=== PATIENT | male | born 1960 | race African-American/Black ===

== ENCOUNTER 2017-06-23 11:26 | Emergency (ER) | payer MEDICAID, OTHER ==
[~2017-06-23] VITALS: Ht 172.7 cm; Wt 68.0 kg
[~2017-06-23 11:26] MED LIST: ALBU8I INH; BIAX500T PO; EMTR200 PO; ETHA400T PO; ISON300 PO; PYRA500 PO; PYRI50TA PO; RALT400 PO; RIFABUTIN PO; SULF-154 PO; TENO300 PO
[2017-06-23 11:30] VITALS: BP 140/81; PULSE 97; RESP 15; TEMP 98.3; O2SAT 99
--- NOTE | 2017-06-23 11:36 | PD ---
Physical Exam Date Seen by Provider: Jun 23, 2017 Time Seen by Provider: 11:32 Data Data Last Documented VS Vital Signs Date Time Temp Pulse Resp B/P Pulse Ox O2 Delivery O2 Flow Rate FiO2 06/23/17 11:30 98.3 97 15 140/81 99 MDM Supervised Visit with FLY: No Narrative Course 57 YO M with "a couple of year history" of bilateral leg pain and swelling. No recent trauma. Patient states he was seen at [facility], provided pain medications. He is requesting pain medications today. History of HIV. No medications for one year. Vitals reviewed. Patient seen in triage. Awaiting bed placement. Bonny Correa Jun 23, 2017 11:36
[2017-06-23 11:55] VITALS: BP 130/68; PULSE 95; RESP 20; TEMP 98.1; O2SAT 99
--- NOTE | 2017-06-23 11:58 | PD ---
HPI . Chronic leg pain Chief Complaint: Pain: Acute or Chronic Time Seen by Provider: 11:57 Travel History International Travel<30 days: No Contact w/Intl Traveler<30days: No Traveled to known affect area: No History of Present Illness HPI 57-year-old male with history of chronic leg pain and HIV here with complaints of worsening leg pain. Patient tells me that he was recently seen at another hospital and prescribed Percocet, which helps his leg pain. However he recently ran out and has not been able to see his primary care provider and tells me is now having difficulty walking without the medications. I know this patient from the [facility]. He had similar issues in the past. At this present time, he has no other complaints other then chronic leg pain. PFSH Past Medical History Blood Disorders: Yes (HIV) Cancer: No Cardiovascular Problems: No Endocrine: No Genitourinary: No Hepatitis: Yes (c) Immune Disorder: Yes (HIV) Implanted Vascular Access Dvce: No Medical other: Yes (chronic pain) Musculoskeletal: No Neurologic: No Psychiatric: No Reproductive: No Respiratory: Yes (TB) Tetanus Vaccination: Unknown Past Surgical History Surgical History: No Previous Surgery Other Surgery: No Social History Alcohol Use: Yes (occ) Tobacco Use: Yes Substance Use: No Allergies-Medications (Allergen,Severity, Reaction): Coded Allergies: No Known Allergies (Verified , 06/23/17) Reported Meds & Prescriptions Reported Meds & Active Scripts Active Percocet (Oxycodone-Acetaminophen) 5-325 mg Tab 1 Tab PO Q6H PRN Reported Oxycodone (Oxycodone HCl) 5 Mg Cap 5 Mg PO BID PRN Review of Systems General / Constitutional: No: Fever Eyes: No: Visual changes HENT: No: Headaches Cardiovascular: No: Chest Pain or Discomfort Respiratory: No: Shortness of Breath Gastrointestinal: No: Abdominal Pain Genitourinary: No: Dysuria Musculoskeletal: Positive: Pain (b/l leg pain) Skin: No Rash Neurologic: No: Weakness Psychiatric: No: Depression Endocrine: No: Polydipsia Hematologic/Lymphatic: No: Easy Bruising Physical Exam Narrative GENERAL: AAO x 3, no acute distress, Well-nourished, well-developed patient. SKIN: Warm and dry. No visible rashes or bruising. multiple excoriations without evidence of infection HEAD: Normocephalic and atraumatic. EYES: No scleral icterus. No injection or drainage. ENT: No nasal drainage noted. Mucous membranes pink. Airway patent. NECK: Supple, trachea midline. No JVD. CARDIOVASCULAR: Regular rate and rhythm without murmurs, gallops, or rubs. RESPIRATORY: Breath sounds equal bilaterally. No accessory muscle use. No rhonchi or rales. GASTROINTESTINAL: Abdomen soft, non-tender, nondistended. EXTREMITIES: No cyanosis or edema. pedal pulses intact. no edema or temperature variation in legs BACK: No obvious deformity. 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 Data Data Last Documented VS Vital Signs Date Time Temp Pulse Resp B/P Pulse Ox O2 Delivery O2 Flow Rate FiO2 06/23/17 11:55 98.1 95 20 130/68 99 Room Air Orders Methylprednisolone So Succ Inj (Solumedr (06/23/17 12:00) Albuterol Neb (Albuterol Neb) (06/23/17 12:00) Oxycodone-Acetamin 5-325 Mg (Percocet (06/23/17 12:00) MDM Medical Decision Making Medical Screen Exam Complete: Yes Emergency Medical Condition: Yes Medical Record Reviewed: Yes Differential Diagnosis Acute on chronic leg pain, less likely fracture, less likely DVT Narrative Course 57-year-old male who I know from the [facility] clinic here with complaints of chronic leg pain. Patient had similar issues in the past twice on him. He is here requesting a refill on his Percocet. He is also been seen by Dr. Rice. We do not recommend any further testing. We provided patient with percocet here in ED. Rx for home. Advised f/u with PCP. Patient verbalized understanding of instructions, questions were answered, and thanked me for their care. I advised them if their condition worsens, please return to the nearest emergency room for further care. Diagnosis Primary Impression: Chronic leg pain Qualified Code: M79.604 - Chronic pain of both lower extremities Referrals: [facility] Patient Instructions: General Instructions Additional Instructions: Contact [facility], and they can help you make changes to your primary care provider. Please visit the health department to get started on HIV medicines again. Med/Other Pt SpecificInfo: Prescription(s) given Scripts Oxycodone-Acetaminophen (Percocet)5-325 mg Tab1 Tab PO Q6H PRN (PAIN) #12 TAB Ref 0 Prov:Osorio Rice MD 06/23/17 Disposition: 01 DISCHARGE HOME Condition: Stable Savi Torers Jun 23, 2017 11:58
[2017-06-23] MEDS ORDERED: OXYC1CAP PO (11:59)
[2017-06-23] MEDS ORDERED: PERC5TAB12 PO (11:59)
[2017-06-23] MEDS ORDERED: oxyCODONE/ACETAMINOPHEN 5 MG/325 MG TAB PO ONE (12:00)
[2017-06-23] MEDS ORDERED: RESP: ALBUTEROL 2.5 MG/3 ML NEB (SCH) INH ONE (12:00)
[2017-06-23] MEDS ORDERED: methylPREDNISolone SOD SUCC 125 MG/2 ML VIAL IVP ONE (12:00)
--- NOTE | 2017-06-23 12:00 | PD ---
Data Data Last Documented VS Vital Signs Date Time Temp Pulse Resp B/P Pulse Ox O2 Delivery O2 Flow Rate FiO2 06/23/17 11:55 98.1 95 20 130/68 99 Room Air Orders Methylprednisolone So Succ Inj (Solumedr (06/23/17 12:00) Albuterol Neb (Albuterol Neb) (06/23/17 12:00) Oxycodone-Acetamin 5-325 Mg (Percocet (06/23/17 12:00) MDM Supervised Visit with FLY: Yes Narrative Course The history, exam, and medical decision-making in the associated mid-level provider note were completed with my assistance. I reviewed and agree with the findings presented. I attest that I had a [id number] encounter with the patient on the same day, and personally performed and documented my assessment and findings in the medical record. *My assessment and Findings: 57-year-old man with untreated HIV, advanced, with chronic leg pain. Here with the same. No significant swelling. Recommend outpatient follow-up. Osorio Rice MD Jun 23, 2017 12:00
[2017-06-23 13:07] VITALS: RESP 20
== END 2017-06-23 13:28 | disposition home or self-care (01) ==
LOC: NEPE 11:26
DX: M79.604 Pain in right leg (principal); M79.605 Pain in left leg; G89.29 Other chronic pain; B19.20 Unspecified viral hepatitis C without hepatic coma; Z86.11 Personal history of tuberculosis; Z21 Asymptomatic human immunodeficiency virus [HIV] infection status; Z72.0 Tobacco use
CPT/HCPCS: 99283

== ENCOUNTER 2018-05-07 12:26 | Inpatient (IN) | payer MEDICAID ==
[~2018-05-07] VITALS: Ht 172.7 cm; Wt 52.1 kg
[2018-05-07] VITALS (7 sets, daily range): BP systolic 94–168; BP diastolic 54–82; PULSE 47–81; RESP 18–22; TEMP 97.2–101.3; O2SAT 93–100
[~2018-05-07 12:26] MED LIST changes: -ALBU8I INH; -BIAX500T PO; -EMTR200 PO; -ETHA400T PO; -ISON300 PO; +OXYC1CAP PO; +PERC5TAB12 PO; -PYRA500 PO; -PYRI50TA PO; -RALT400 PO; -RIFABUTIN PO; -SULF-154 PO; -TENO300 PO
[2018-05-07] MEDS ORDERED: SODIUM CHLOR 0.9% 1000 ML INJ 1,000 ML IV ONE ×2 (13:09)
[2018-05-07] MEDS ORDERED: ACETAMINOPHEN 650 MG SUPP RECTAL ONE (13:15)
[2018-05-07 13:42] LABS: HEMATOCRIT 28.9 % (39.0-51.0); HEMOGLOBIN 10.1 GM/DL (13.0-17.0); MEAN CELL VOLUME 94.5 FL (80.0-100.0); MEAN CORPUSCULAR HGB CONC 34.9 % (32.0-36.0); MEAN PLATELET VOLUME 9.1 FL (7.0-11.0); PLATELET COUNT 131 TH/MM3 (150-450); RED BLOOD COUNT 3.06 MIL/MM3 (4.50-5.90); RED CELL DISTRIBUTION WIDTH 14.4 % (11.6-17.2); WHITE BLOOD COUNT 7.1 TH/MM3 (4.0-11.0)
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
[2018-05-07 13:55] LABS: INTERNATIONAL NORMALIZED RATIO 1.2 RATIO; PROTHROMBIN TIME - PATIENT 12.4 SEC (9.8-11.6)
[2018-05-07 13:59] LABS: ALBUMIN 2.1 GM/DL (3.4-5.0); ALT (GPT) 45 U/L (12-78); AST (GOT) 78 U/L (15-37); BICARBONATE 21.4 MEQ/L (21.0-32.0); BLOOD UREA NITROGEN 10 MG/DL (7-18); CALCIUM 7.8 MG/DL (8.5-10.1); CHLORIDE 115 MEQ/L (98-107); CREATININE 1.06 MG/DL (0.60-1.30); GLOMERULAR FILTRATION RATE 87 ML/MIN (>89); GLUCOSE,RANDOM 112 MG/DL (74-106); SODIUM (NA) 146 MEQ/L (136-145)
[2018-05-07 14:03] LABS: ALKALINE PHOSPHATASE 69 U/L (45-117); TOTAL PROTEIN 7.5 GM/DL (6.4-8.2)
--- NOTE | 2018-05-07 14:17 | RADRPT ---
EXAM DATE: 05/07/2018 2:06 PM EDT AGE/SEX: 57 years / Male INDICATIONS: Altered mental status CLINICAL DATA: This is the patient's initial encounter. Patient reports that signs and symptoms have been present for 1 day and indicates a pain score of 0/10. MEDICAL/SURGICAL HISTORY: HIV. Hepatitis C. None. RADIATION DOSE: 56.35 CTDI (mGy) COMPARISON: [facility], CT BRAIN W/O CONTRAST, 09/17/2014. . TECHNIQUE: CT of the head without contrast. Using automated exposure control and adjustment of the mA and/or kV according to patient size, radiation dose was kept as low as reasonably achievable to ob tain optimal diagnostic quality images. DICOM format image data is available electronically for revi ew and comparison. FINDINGS: Cerebrum: There is mild generalized atrophy and ventricles are normal given the degree of atrophy. M ild periventricular white matter change is present. No midline shift, mass lesion, hemorrhage or acu te infarction. No extraaxial fluid collections are seen. Posterior Fossa: The cerebellum and brainstem demonstrate no acute abnormality. The 4th ventricle is midline. The cerebellopontine angle is within normal limits. Extracranial: The visualized sinuses are clear. Skull: The calvaria is intact. No skull fracture. CONCLUSION: 1. No acute intracranial abnormality is identified. 2. There is mild generalized atrophy and mild periventricular white matter change. Electronically signed by: Bentley Sosa MD 05/07/2018 2:16 PM EDT
[2018-05-07 14:19] LABS: BANDS 9 % (0-6); CORRECTED NUCLEATED RBC 1 /100 WBC (0-0); LYMPHOCYTES 2 % (9-44); MONOCYTES 5 % (0-8); NEUTROPHIL # MANUAL DIFF 6.6 TH/MM3 (1.8-7.7); NUCLEATED RED BLOOD CELL 1 (0-0); POLYS (SEG NEUTROPHILS) 84 % (16-70)
[2018-05-07 14:21] LABS: TOXIC GRANULATION 1+ (NORMAL)
[2018-05-07 14:22] LABS: TOXIC VACUOLATION PRESENT (NONE SEEN)
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
[2018-05-07 16:00] LABS: BACTERIA, URINE RARE /hpf; BILIRUBIN, URINE NEG (NEG); BLOOD, URINE MOD (NEG); GLUCOSE,URINE NEG (NEG); KETONE, URINE NEG (NEG); NITRITE,URINE NEG (NEG); SQUAMOUS EPITHELIAL CELL URINE 2 /hpf (0-5); URINE COLOR Amber (YELLW/STRAW); URINE LEUKOCYTE ESTERASE SMALL (NEG)
[2018-05-07] MEDS ORDERED: PIPERACIL-TAZO 4.5 GM PREMIX 100 ML IV STA (16:04)
[2018-05-07] MEDS ORDERED: SODIUM CHLOR 0.9% 1000 ML INJ 1,000 ML IV SCH (16:38)
--- NOTE | 2018-05-07 16:38 | PD ---
Physical Exam Narrative GENERAL: 57 y/o male in no apparent distress SKIN: Focused skin assessment warm/dry. HEAD: Normocephalic. EYES: Pupils equal and round. No injection or drainage. ENT: No nasal bleeding or discharge. Mucous membranes pink and moist. NECK: Trachea midline. CARDIOVASCULAR: Regular rate and rhythm. RESPIRATORY: No accessory muscle use. no increased effort GASTROINTESTINAL: Abdomen nondistended. MUSCULOSKELETAL: No obvious deformities. No clubbing. No cyanosis. NEUROLOGICAL: Awake. moves extremities Data Data Last Documented VS Vital Signs Date Time Temp Pulse Resp B/P (MAP) Pulse Ox O2 Delivery O2 Flow Rate FiO2 05/07/18 16:13 64 18 137/60 (85) 100 Room Air 05/07/18 12:35 99.6 Orders Orders Sepsis Workup Initiated (05/07/18 ) Complete Blood Count With Diff (05/07/18 13:09) Comprehensive Metabolic Panel (05/07/18 13:09) Prothrombin Time / Inr (Pt) (05/07/18 13:09) Act Partial Throm Time (Ptt) (05/07/18 13:09) Lactic Acid Sepsis Protocol (05/07/18 13:09) Magnesium (Mg) (05/07/18 13:09) Ckmb (Isoenzyme) Profile (05/07/18 13:09) Troponin I (05/07/18 13:09) Urinalysis - C+S If Indicated (05/07/18 13:09) Blood Culture (05/07/18 13:09) Chest, Single Ap (05/07/18 13:09) Blood Glucose (05/07/18 13:09) Ecg Monitoring (05/07/18 13:09) Iv Access Insert/Monitor (05/07/18 13:09) Cath For Specimen (05/07/18 13:09) Oximetry (05/07/18 13:09) Oxygen Administration (05/07/18 13:09) Acetaminophen Supp (Tylenol Supp) (05/07/18 13:15) Sodium Chlor 0.9% 1000 Ml Inj (Ns 1000 M (05/07/18 13:09) Sodium Chlor 0.9% 1000 Ml Inj (Ns 1000 M (05/07/18 13:09) Ct Brain W/O Iv Contrast(Rout) (05/07/18 ) CKMB (05/07/18 13:30) CKMB% (05/07/18 13:30) Urine Culture (05/07/18 15:19) Piperacil-Tazo 4.5 Gm Premix (Zosyn 4.5 (05/07/18 16:04) Labs Laboratory Tests Test 05/07/18 13:30 05/07/18 15:19 White Blood Count 7.1 TH/MM3 Red Blood Count 3.06 MIL/MM3 Hemoglobin 10.1 GM/DL Hematocrit 28.9 % Mean Corpuscular Volume 94.5 FL Mean Corpuscular Hemoglobin 33.0 PG Mean Corpuscular Hemoglobin Concent 34.9 % Red Cell Distribution Width 14.4 % Platelet Count 131 TH/MM3 Mean Platelet Volume 9.1 FL CBC Comment AUTO DIFF Differential Total Cells Counted 100 Neutrophils % (Manual) 84 % Band Neutrophils % 9 % Lymphocytes % 2 % Monocytes % 5 % Neutrophils # (Manual) 6.6 TH/MM3 Nucleated Red Blood Cells 1 /100 WBC Differential Comment FINAL DIFF MANUAL Toxic Granulation 1+ Toxic Vacuolation PRESENT Platelet Estimate LOW Platelet Morphology Comment NORMAL Prothrombin Time 12.4 SEC Prothromb Time International Ratio 1.2 RATIO Activated Partial Thromboplast Time 27.7 SEC Blood Urea Nitrogen 10 MG/DL Creatinine 1.06 MG/DL Random Glucose 112 MG/DL Total Protein 7.5 GM/DL Albumin 2.1 GM/DL Calcium Level 7.8 MG/DL Magnesium Level 2.0 MG/DL Alkaline Phosphatase 69 U/L Aspartate Amino Transf (AST/SGOT) 78 U/L Alanine Aminotransferase (ALT/SGPT) 45 U/L Total Bilirubin 1.0 MG/DL Sodium Level 146 MEQ/L Potassium Level 3.5 MEQ/L Chloride Level 115 MEQ/L Carbon Dioxide Level 21.4 MEQ/L Anion Gap 10 MEQ/L Estimat Glomerular Filtration Rate 87 ML/MIN Lactic Acid Level 2.0 mmol/L Total Creatine Kinase 455 U/L Creatine Kinase MB 2.0 NG/ML Creatine Kinase MB % 0.4 % Troponin I 0.10 NG/ML Urine Color [place]ila Urine Turbidity HAZY Urine pH 6.0 Urine Specific [place] 1.019 Urine Protein NEG mg/dL Urine Glucose (UA) NEG mg/dL Urine Ketones NEG mg/dL Urine Occult Blood MOD Urine Nitrite NEG Urine Bilirubin NEG Urine Urobilinogen 4.0 OR GREATER mg/dL Urine Leukocyte Esterase SMALL Urine RBC 5 /hpf Urine WBC 4 /hpf Urine Squamous Epithelial Cells 2 /hpf Urine Bacteria RARE /hpf Microscopic Urinalysis Comment CATH-CULTURE IND MDM Supervised Visit with FLY: Yes Interpretation(s) CBC & BMP Diagram 05/07/18 13:30 Total Protein 7.5, Albumin 2.1 L, Calcium Level 7.8 L, Magnesium Level 2.0, Alkaline Phosphatase 69, Aspartate Amino Transf (AST/SGOT) 78 H, Alanine Aminotransferase (ALT/SGPT) 45, Total Bilirubin 1.0 Last 24 hours Impressions Chest X-Ray 05/07/18 1309 Signed Impressions: CONCLUSION: 1. No acute abnormality or significant interval change. Head CT 05/07/18 0000 Signed Impressions: CONCLUSION: 1. No acute intracranial abnormality is identified. 2. There is mild generalized atrophy and mild periventricular white matter bubba nge. Narrative Course I, Dr. conway, have reviewed the advance practice practitioner's documentation and am in agreement, met with the patient face to face, made the diagnosis, and the medical decision making was done by me. *My assessment and Findings: 57-year-old male brought in with concern for living environment and altered mental status with history of HIV. Workup reveals UTI and elevated troponin. He will be admitted to the hospital for further care and antibiotics given. Diagnosis Primary Impression: Encephalopathy Additional Impressions: UTI (urinary tract infection) Qualified Codes: N39.0 - Urinary tract infection, site not specified Anemia Qualified Codes: D64.9 - Anemia, unspecified HIV (human immunodeficiency virus infection) Elevated troponin Admitting Information Admitting Physician Requests: Admit Kristen Conway MD May 07, 2018 16:38
[2018-05-07] MEDS ORDERED: LACTULOSE SYRUP 20 GM/30 ML CUP PO PRN (16:45)
[2018-05-07] MEDS ORDERED: NALOXONE HCL 0.4 MG/ML AMP IV PUSH PRN (16:45)
[2018-05-07] MEDS ORDERED: SODIUM CHLORIDE 0.9% FLUSH 10 ML FLUSH IV FLUSH PRN (16:45)
[2018-05-07] MEDS ORDERED: MAGNESIUM HYDROXIDE SUSP 30 ML CUP PO PRN (16:45)
[2018-05-07] MEDS ORDERED: SENNOSIDES 8.6 MG TAB PO PRN (16:45)
[2018-05-07] MEDS ORDERED: BISACODYL 10 MG SUPP RECTAL PRN (16:45)
[2018-05-07] MEDS ORDERED: ASPIRIN 325 MG TAB PO ONE (18:15)
--- NOTE | 2018-05-07 18:36 | HHI.HP ---
HPI Service [facility] Hospitalists Primary Care Physician Unknown Admission Diagnosis altered mental status, uti, elevated troponin Diagnoses: (1) UTI (urinary tract infection) (2) Elevated troponin Chief Complaint: Patient found by DCF worker noted to have altered mental status Travel History International Travel<30 Days: No (UNABLE TO ASSESS) Contact w/Intl Traveler <30 Da: No (UNABLE TO ASSESS) Traveled to Known Affected Are: No (UNABLE TO ASSESS) History of Present Illness This a 57-year-old male patient with past medical history which includes HIV diagnosed with AIDS October 2014, hepatitis C and tuberculosis. Patient presented to the emergency department for evaluation from home for altered mental status. Patient is able to give me his name able to tell me he is at [facility] but is unable to tell me month day or year, patient also appears to be a poor historian and has limited ability recalling details. Information gathered from patient physical exam and prior computerized charting. Per ER report DCF profiler operator called EMS, patient was found living in deplorable conditions. There were cockroaches, animals and filthy conditions the patient was living in. Patient likely has not had his medications in some time. At this time patient denies shortness of breath chest pain nausea vomiting diarrhea constipation fevers chills cough congestion or shortness of breath. Patient also denies dysuria but does endorse increased urinary frequency. Patient noted to be thin/cachectic but denies recent weight loss and reports good appetite. Review of Systems ROS Limitations: Poor Historian Genitourinary: COMPLAINS OF: Urinary frequency Except as stated in HPI: all other systems reviewed are Neg Past Family Social History Past Medical History HIV diagnosed with AIDS October 2014, hepatitis C and tuberculosis Past Surgical History Denies prior surgical intervention Reported Medications No Active Prescriptions or Reported Medications Allergies: Coded Allergies: No Known Allergies (Verified , 06/23/17) Active Ordered Medications Current Medications Medications (Trade) Dose Ordered Sig/Deb Route Start Time Stop Time Status Last Admin Sodium Chloride 1,000 ml @ 100 mls/hr Q10H IV 05/07/18 16:38 05/07/18 16:56 (NS Flush) 2 ml UNSCH PRN IV FLUSH 05/07/18 16:45 (NS Flush) 2 ml BID IV FLUSH 05/07/18 21:00 (Narcan Inj) 0.4 mg UNSCH PRN IV PUSH 05/07/18 16:45 (Milk Of Magnesia Liq) 30 ml Q12H PRN PO 05/07/18 16:45 (Senokot) 17.2 mg Q12H PRN PO 05/07/18 16:45 (Dulcolax Supp) 10 mg DAILY PRN RECTAL 05/07/18 16:45 (Lactulose Liq) 30 ml DAILY PRN PO 05/07/18 16:45 Ceftriaxone Sodium 1000 mg/ Sodium Chloride 100 ml @ 200 mls/hr Q24H IV 05/07/18 18:00 Family History Reviewed and noncontributory. Patient denies family medical history specifically diabetes hypertension cardiac disease Social History Patient lives at home with family members Denies EtOH use or illicit drug use Patient reports he smokes cigarettes, "when he can sneak outside," away from his family members. Patient reports this is not even on a daily basis Physical Exam Vital Signs Vital Signs Date Time Temp Pulse Resp B/P (MAP) Pulse Ox O2 Delivery O2 Flow Rate FiO2 05/07/18 16:13 64 18 137/60 (85) 100 Room Air 05/07/18 14:14 81 18 168/70 (102) 95 Room Air 05/07/18 13:38 22 100 Room Air 05/07/18 13:38 100 Room Air 05/07/18 13:10 65 16 100 Room Air 05/07/18 12:35 99.6 75 18 94/54 (67) 100 Physical Exam GENERAL: This is a cachectic 57-year-old male patient appears older than stated age but in no acute distress SKIN: Multiple areas of healing wound/hypopigmentation throughout body HEAD: Atraumatic. Normocephalic. No temporal or scalp tenderness. EYES: Extraocular motions intact. No scleral icterus. No injection or drainage. CARDIOVASCULAR: Regular rate and rhythm RESPIRATORY: Clear to auscultation. Breath sounds equal bilaterally. GASTROINTESTINAL: Abdomen soft, non-tender, nondistended. MUSCULOSKELETAL: Extremities without clubbing, cyanosis, or edema. No joint tenderness, effusion, or edema noted. No calf tenderness. Negative Homans sign bilaterally. NEUROLOGICAL: Awake and alert. Able to provide name and tell me that he is at [facility]. Patient unable to provide month day or year. No focal deficits appreciated. motor and sensory grossly within normal limits. 4-5 out of 5 muscle strength in all muscle groups. Laboratory Laboratory Tests Test 05/07/18 13:30 05/07/18 15:19 White Blood Count 7.1 Red Blood Count 3.06 Hemoglobin 10.1 Hematocrit 28.9 Mean Corpuscular Volume 94.5 Mean Corpuscular Hemoglobin 33.0 Mean Corpuscular Hemoglobin Concent 34.9 Red Cell Distribution Width 14.4 Platelet Count 131 Mean Platelet Volume 9.1 CBC Comment AUTO DIFF Differential Total Cells Counted 100 Neutrophils % (Manual) 84 Band Neutrophils % 9 Lymphocytes % 2 Monocytes % 5 Neutrophils # (Manual) 6.6 Nucleated Red Blood Cells 1 Differential Comment FINAL DIFF MANUAL Toxic Granulation 1+ Toxic Vacuolation PRESENT Platelet Estimate LOW Platelet Morphology Comment NORMAL Prothrombin Time 12.4 Prothromb Time International Ratio 1.2 Activated Partial Thromboplast Time 27.7 Blood Urea Nitrogen 10 Creatinine 1.06 Random Glucose 112 Total Protein 7.5 Albumin 2.1 Calcium Level 7.8 Magnesium Level 2.0 Alkaline Phosphatase 69 Aspartate Amino Transf (AST/SGOT) 78 Alanine Aminotransferase (ALT/SGPT) 45 Total Bilirubin 1.0 Sodium Level 146 Potassium Level 3.5 Chloride Level 115 Carbon Dioxide Level 21.4 Anion Gap 10 Estimat Glomerular Filtration Rate 87 Lactic Acid Level 2.0 Total Creatine Kinase 455 Creatine Kinase MB 2.0 Creatine Kinase MB % 0.4 Troponin I 0.10 Urine Color Gila Urine Turbidity HAZY Urine pH 6.0 Urine Specific Donora 1.019 Urine Protein NEG Urine Glucose (UA) NEG Urine Ketones NEG Urine Occult Blood MOD Urine Nitrite NEG Urine Bilirubin NEG Urine Urobilinogen 4.0 OR GREATER Urine Leukocyte Esterase SMALL Urine RBC 5 Urine WBC 4 Urine Squamous Epithelial Cells 2 Urine Bacteria RARE Microscopic Urinalysis Comment CATH-CULTURE IND Date/Time Source Procedure Growth Status 05/07/18 13:30 Blood Peripheral Aerobic Blood Culture Pending Received 05/07/18 13:30 Blood Peripheral Anaerobic Blood Culture Pending Received 05/07/18 15:19 Urine Catheterized Urine Urine Culture Pending Received Result Diagram: 05/07/18 1330 05/07/18 1330 Imaging Last Impressions Chest X-Ray 05/07/18 1309 Signed Impressions: CONCLUSION: 1. No acute abnormality or significant interval change. Head CT 05/07/18 0000 Signed Impressions: CONCLUSION: 1. No acute intracranial abnormality is identified. 2. There is mild generalized atrophy and mild periventricular white matter bubba nge. Caprini VTE Risk Assessment Caprini VTE Risk Assessment: No/Low Risk (score <= 1) Caprini Risk Assessment Model Point Value = 1 Point Value = 2 Point Value = 3 Point Value = 5 Age 41-60 Minor surgery BMI > 25 kg/m2 Swollen legs Varicose veins or History of unexplained or recurrent spontaneous Oral contraceptives or hormone replacement Sepsis (< 1 month) Serious lung disease, including pneumonia (< 1 month) Abnormal pulmonary function Acute myocardial infarction Congestive heart failure (< 1 month) History of inflammatory bowel disease Medical patient at bed rest Age 61-74 Arthroscopic surgery Major open surgery (> 45 min) Laparoscopic surgery (> 45 min) Malignancy Confined to bed (> 72 hours) Immobilizing plaster cast Central venous access Age >= 75 History of VTE Family history of VTE Factor V Leiden Prothrombin [id number] Lupus anticoagulant Anticardiolipin antibodies Elevated serum homocysteine Heparin-induced thrombocytopenia Other congenital or acquired thrombophilia Stroke (< 1 month) Elective arthroplasty Hip, pelvis, or leg fracture Acute spinal cord injury (< 1 month) Prophylaxis Regimen Total Risk Factor Score Risk Level Prophylaxis Regimen 0-1 Low Early ambulation 2 Moderate Order ONE of the following: *Sequential Compression Device (SCD) *Heparin 5000 units SQ BID 3-4 Higher Order ONE of the following medications: *Heparin 5000 units SQ TID *Enoxaparin/Lovenox 40 mg SQ daily (WT < 150 kg, CrCl > 30 mL/min) *Enoxaparin/Lovenox 30 mg SQ daily (WT < 150 kg, CrCl > 10-29 mL/min) *Enoxaparin/Lovenox 30 mg SQ BID (WT < 150 kg, CrCl > 30 mL/min) AND/OR *Sequential Compression Device (SCD) 5 or more Highest Order ONE of the following medications: *Heparin 5000 units SQ TID (Preferred with Epidurals) *Enoxaparin/Lovenox 40 mg SQ daily (WT < 150 kg, CrCl > 30 mL/min) *Enoxaparin/Lovenox 30 mg SQ daily (WT < 150 kg, CrCl > 10-29 mL/min) *Enoxaparin/Lovenox 30 mg SQ BID (WT < 150 kg, CrCl > 30 mL/min) AND *Sequential Compression Device (SCD) Assessment and Plan Assessment and Plan UTI Patient endorses increased urinary frequency White blood cell count on admission 7.1 neutrophils 84 Urinalysis reviewed and reveals small amount of leukocyte esterase with rare bacteria culture pending Patient given IV Zosyn 1 in emergency department Continue IV Rocephin 1 g daily Elevated troponin Troponin on admission 0.10 patient denies chest pain Initial EKG obtained and reveals sinus bradycardia rate 53, prolonged QT interval 538 discussed results and EKG with supervising physician Dr. Marques Consult cardiology We will trend serial troponin and serial EKG aspirin daily lipid profile in AM continuous telemetry patient was hypotensive on admission will hold off on BB Weakness Consult physical therapy Mild hypernatremia sodium 146 Continue IV fluids half-normal saline at 100 mL's per hour 1 L Recheck BMP in a.m. AIDS HIV diagnosed with AIDS October 2014 appears to be end stage will consult palliative care to assist in establishing goals of care Consult case management patient will likely need SNF at time of DC DVT prophylaxis with SCDs Discussed case with patient, nurse and Dr. Marques (supervising physician) Physician Certification 2 Midnight Certification Type: Admission for Inpatient Services Order for Inpatient Services The services are ordered in accordance with Medicare regulations or non- Medicare payer requirements, as applicable. In the case of services not specified as inpatient-only, they are appropriately provided as inpatient services in accordance with the 2-midnight benchmark. Estimated LOS (days): 2 days is the estimated time the patient will need to remain in the hospital, assuming treatment plan goals are met and no additional complications. Post-Hospital Plan: SNF Problem Qualifiers (1) UTI (urinary tract infection): Qualified Codes: N39.0 - Urinary tract infection, site not specified Joan Longo May 07, 2018 18:36
[2018-05-07] MEDS: cefTRIAXone INJ 1,000 MG in SODIUM CHLORIDE 0.9% INJ 100 ML IV SCH (19:26)
[2018-05-07] MEDS: SODIUM CHLOR 0.45% 1000 ML INJ 1,000 ML IV SCH (19:27)
[2018-05-07] MEDS: SODIUM CHLORIDE 0.9% FLUSH 10 ML FLUSH IV FLUSH SCH (21:00)
[2018-05-07 21:57] LABS: TROPONIN I 0.1 NG/ML (0.02-0.05)
[2018-05-08] VITALS (10 sets, daily range): BP systolic 97–118; BP diastolic 63–84; PULSE 48–72; RESP 16–20; TEMP 97–98.4; O2SAT 95–100
[2018-05-08 05:52] LABS: HEMATOCRIT 28.1 % (39.0-51.0); HEMOGLOBIN 9.7 GM/DL (13.0-17.0); MEAN CELL VOLUME 96.3 FL (80.0-100.0); MEAN CORPUSCULAR HEMOGLOBIN 33.4 PG (27.0-34.0); MEAN CORPUSCULAR HGB CONC 34.6 % (32.0-36.0); MEAN PLATELET VOLUME 9.6 FL (7.0-11.0); PLATELET COUNT 103 TH/MM3 (150-450); RED BLOOD COUNT 2.91 MIL/MM3 (4.50-5.90); RED CELL DISTRIBUTION WIDTH 14.4 % (11.6-17.2); WHITE BLOOD COUNT 5.1 TH/MM3 (4.0-11.0)
[2018-05-08 06:29] LABS: ALBUMIN 1.7 GM/DL (3.4-5.0); BICARBONATE 19.1 MEQ/L (21.0-32.0); CALCIUM 7.2 MG/DL (8.5-10.1); CALCIUM-PROTEIN CORRECTED 7.6 MG/DL (8.5-10.1); CHOLESTEROL/ HDL RATIO 5.03 RATIO; CREATININE 0.87 MG/DL (0.60-1.30); HDL CHOLESTEROL 13.5 MG/DL (40.0-60.0); TOTAL BILIRUBIN ADULT 0.8 MG/DL (0.2-1.0); TOTAL PROTEIN 6.4 GM/DL (6.4-8.2); TROPONIN I 0.08 NG/ML (0.02-0.05)
[2018-05-08 07:08] LABS: BANDS 13 % (0-6); LYMPHOCYTES 7 % (9-44); MONOCYTES 2 % (0-8); MYELOCYTES 1 % (0-0); NEUTROPHIL # MANUAL DIFF 4.6 TH/MM3 (1.8-7.7); POLYS (SEG NEUTROPHILS) 77 % (16-70)
[2018-05-08 07:10] LABS: KERATOCYTES 1+ (NORMAL); TOXIC VACUOLATION PRESENT (NONE SEEN)
--- NOTE | 2018-05-08 07:26 | EKG ---
Date Performed: 05/07/2018 Time Performed: 22:22:54 PTAGE: 57 years EKG: SINUS BRADYCARDIA WITH SHORT AK INTERVAL POSSIBLE LATERAL MYOCARDIAL INFARCTION , OF INDETE RMINATE AGE ABNORMAL ECG PREVIOUS TRACING : 05/07/2018 17.13 DOCTOR: Osorio Enrique Interpretating Date/Time 05/08/2018 07:23:54
--- NOTE | 2018-05-08 07:33 | EKG ---
Date Performed: 05/07/2018 Time Performed: 17:13:38 PTAGE: 57 years EKG: SINUS BRADYCARDIA WITH OCCASIONAL SUPRAVENTRICULAR PREMATURE COMPLEXES PROLONGED QT INTERVA L ABNORMAL ECG PREVIOUS TRACING : 10/17/2014 14.23 DOCTOR: Osorio Enrique Interpretating Date/Time 05/08/2018 07:30:22
[2018-05-08] MEDS: ASPIRIN 325 MG TAB PO SCH (09:10)
[2018-05-08] MEDS: POTASSIUM CHLORIDE 10 MEQ CONTROLLED RELEASE TAB PO SCH ×2 (09:10→11:01)
[2018-05-08] MEDS: SODIUM CHLOR 0.45% 1000 ML INJ 1,000 ML IV SCH (09:11)
[2018-05-08] MEDS: SODIUM CHLORIDE 0.9% FLUSH 10 ML FLUSH IV FLUSH SCH ×2 (09:18→21:16)
[2018-05-08] MEDS: POTASSIUM CHLOR 20 MEQ PREMIX 100 ML IV SCH ×5 (11:01→23:12)
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
--- NOTE | 2018-05-08 13:45 | MB ---
cc: Miki Becerra MD DATE: 05/08/2018 HISTORY OF PRESENT ILLNESS: Mr. Vaz is a 57-year-old black male with a history of AIDS, hepatitis C and tuberculosis. He was brought from home due to altered mental status. He denies any chest pain, shortness of breath, dizziness, lightheadedness, palpitations or peripheral edema. PAST MEDICAL HISTORY: Positive for HIV/AIDS, hepatitis C, tuberculosis. MEDICATIONS: Include: Aspirin, potassium chloride, ceftriaxone. ALLERGIES: NONE. SOCIAL HISTORY: The patient is a smoker. He does not drink alcohol. He lives with family. FAMILY HISTORY: Negative for heart disease. REVIEW OF SYSTEMS: Otherwise negative. PHYSICAL EXAMINATION: VITAL SIGNS: Blood pressure 103/66, pulse 53 and regular. HEENT: Negative 2+ carotid upstrokes, no bruits. LUNGS: Clear. HEART: Regular with no murmur or gallop or rub. ABDOMEN: Soft. No bruits. EXTREMITIES: Without edema. 2+ distal pulses. NEUROLOGIC: Grossly nonfocal. The patient is confused. SKIN: With multiple areas of depigmentation. LABORATORY DATA: EKG was reviewed and showed sinus bradycardia, PACs. No acute changes. LABORATORY DATA: Hemoglobin 9.7, potassium 2.8, creatinine 0.9, AST 89, ALT 41. CK 455, 944 and 966, CK-MB index normal. Troponin, 0.10, 0.10 and 0.08. DIAGNOSIS: 1. Altered mental status. 2. Urinary tract infection. 3. AIDS. 4. Mildly abnormal troponin. 5. History of hepatitis C. 6. History of tuberculosis. DISPOSITION: Mr. Vaz will be monitored on telemetry. His troponin is slightly elevated, but not trending. His EKG shows no acute changes and there is no evidence of acute coronary syndrome. I recommend to continue monitoring on telemetry. We will obtain echocardiogram to evaluate his left ventricular function. Miki Becerra MD OQ/TL , 01:20 PM , 01:[address] [facility]
--- NOTE | 2018-05-08 14:10 | HHI.PR ---
Subjective Remarks This a 57-year-old male patient with past medical history which includes HIV diagnosed with AIDS October 2014, hepatitis C and tuberculosis. Patient presented to the emergency department for evaluation from home for altered mental status. Patient is able to give me his name able to tell me he is at [facility] but is unable to tell me month day or year, patient also appears to be a poor historian and has limited ability recalling details. Information gathered from patient physical exam and prior computerized charting. Per ER report DCF low voltage technician called EMS, patient was found living in deplorable conditions. There were cockroaches, animals and filthy conditions the patient was living in. Patient likely has not had his medications in some time. At this time patient denies shortness of breath chest pain nausea vomiting diarrhea constipation fevers chills cough congestion or shortness of breath. Patient also denies dysuria but does endorse increased urinary frequency. Patient noted to be thin/cachectic but denies recent weight loss and reports good appetite. 05-08 patient is very poor historian NOT SURE WHERE HE LIVES NEEDS PT AND OT NOT ON ANY MEDICATIONS AT HOME ONEAL RN AND PT AND CM Objective Vitals Vital Signs Date Time Temp Pulse Resp B/P (MAP) Pulse Ox O2 Delivery O2 Flow Rate FiO2 05/08/18 08:00 48 05/08/18 08:00 Room Air 05/08/18 04:30 55 05/08/18 04:00 97.4 54 18 103/66 (78) 96 05/08/18 00:30 54 05/08/18 00:00 97.8 52 16 97/68 (78) 95 05/07/18 22:43 Room Air 05/07/18 20:30 47 05/07/18 20:00 97.4 54 18 121/69 (86) 93 05/07/18 18:45 Room Air 05/07/18 18:36 97.2 50 19 129/82 (98) 97 05/07/18 16:13 64 18 137/60 (85) 100 Room Air 05/07/18 14:14 81 18 168/70 (102) 95 Room Air I/O 05/07/18 05/07/18 05/07/18 05/08/18 05/08/18 05/08/18 07:00 15:00 23:00 07:00 15:00 23:00 Intake Total 0 ml Output Total 750 ml Balance -750 ml Intake Oral 0 ml Output Urine Total 750 ml # Voids 2 # Bowel Movements 0 Result Diagram: 05/08/18 0430 05/08/18 0430 Other Results Laboratory Tests Test 05/07/18 13:30 05/07/18 15:19 05/07/18 21:08 05/08/18 04:30 White Blood Count 7.1 TH/MM3 5.1 TH/MM3 Red Blood Count 3.06 MIL/MM3 2.91 MIL/MM3 Hemoglobin 10.1 GM/DL 9.7 GM/DL Hematocrit 28.9 % 28.1 % Mean Corpuscular Volume 94.5 FL 96.3 FL Mean Corpuscular Hemoglobin 33.0 PG 33.4 PG Mean Corpuscular Hemoglobin Concent 34.9 % 34.6 % Red Cell Distribution Width 14.4 % 14.4 % Platelet Count 131 TH/MM3 103 TH/MM3 Mean Platelet Volume 9.1 FL 9.6 FL CBC Comment AUTO DIFF AUTO DIFF Differential Total Cells Counted 100 100 Neutrophils % (Manual) 84 % 77 % Band Neutrophils % 9 % 13 % Lymphocytes % 2 % 7 % Monocytes % 5 % 2 % Neutrophils # (Manual) 6.6 TH/MM3 4.6 TH/MM3 Nucleated Red Blood Cells 1 /100 WBC Differential Comment FINAL DIFF MANUAL FINAL DIFF MANUAL Toxic Granulation 1+ Toxic Vacuolation PRESENT PRESENT Platelet Estimate LOW LOW Platelet Morphology Comment NORMAL NORMAL Prothrombin Time 12.4 SEC Prothromb Time International Ratio 1.2 RATIO Activated Partial Thromboplast Time 27.7 SEC Blood Urea Nitrogen 10 MG/DL 8 MG/DL Creatinine 1.06 MG/DL 0.87 MG/DL Random Glucose 112 MG/DL 77 MG/DL Total Protein 7.5 GM/DL 6.4 GM/DL Albumin 2.1 GM/DL 1.7 GM/DL Calcium Level 7.8 MG/DL 7.2 MG/DL Magnesium Level 2.0 MG/DL Alkaline Phosphatase 69 U/L 60 U/L Aspartate Amino Transf (AST/SGOT) 78 U/L 89 U/L Alanine Aminotransferase (ALT/SGPT) 45 U/L 41 U/L Total Bilirubin 1.0 MG/DL 0.8 MG/DL Sodium Level 146 MEQ/L 142 MEQ/L Potassium Level 3.5 MEQ/L 2.8 MEQ/L Chloride Level 115 MEQ/L 113 MEQ/L Carbon Dioxide Level 21.4 MEQ/L 19.1 MEQ/L Anion Gap 10 MEQ/L 10 MEQ/L Estimat Glomerular Filtration Rate 87 ML/MIN 109 ML/MIN Lactic Acid Level 2.0 mmol/L Total Creatine Kinase 455 U/L 944 U/L 966 U/L Creatine Kinase MB 2.0 NG/ML 5.2 NG/ML 8.4 NG/ML Creatine Kinase MB % 0.4 % 0.6 % 0.9 % Troponin I 0.10 NG/ML 0.10 NG/ML 0.08 NG/ML Urine Color [place] Urine Turbidity HAZY Urine pH 6.0 Urine Specific [place] 1.019 Urine Protein NEG mg/dL Urine Glucose (UA) NEG mg/dL Urine Ketones NEG mg/dL Urine Occult Blood MOD Urine Nitrite NEG Urine Bilirubin NEG Urine Urobilinogen 4.0 OR GREATER mg/dL Urine Leukocyte Esterase SMALL Urine RBC 5 /hpf Urine WBC 4 /hpf Urine Squamous Epithelial Cells 2 /hpf Urine Bacteria RARE /hpf Microscopic Urinalysis Comment CATH-CULTURE IND Myelocytes 1 % Keratocytes 1+ Protein Corrected Calcium 7.6 MG/DL Triglycerides Level 157 MG/DL Cholesterol Level 68 MG/DL LDL Cholesterol 23 MG/DL HDL Cholesterol 13.5 MG/DL Cholesterol/HDL Ratio 5.03 RATIO Imaging Last Impressions Chest X-Ray 05/07/18 1309 Signed Impressions: CONCLUSION: 1. No acute abnormality or significant interval change. Head CT 05/07/18 0000 Signed Impressions: CONCLUSION: 1. No acute intracranial abnormality is identified. 2. There is mild generalized atrophy and mild periventricular white matter bubba nge. Objective Remarks GENERAL: Awake alert oriented times person not so talkative not so cooperative dry skin SKIN: Warm and dry. Dry skin HEAD: Atraumatic. Normocephalic. EYES: Pupils equal and round. No scleral icterus. No injection or drainage. extraocular muscles intact ENT: No nasal bleeding or discharge. Mucous membranes pink and moist. Tongue is midline poor dentition NECK: Trachea midline. No JVD. Supple CARDIOVASCULAR: Regular rate and rhythm. S1-S2 no S3 or S4 RESPIRATORY: No accessory muscle use. Clear to auscultation. Breath sounds equal bilaterally. GASTROINTESTINAL: Abdomen soft, non-tender, nondistended. Hepatic and splenic margins not palpable. MUSCULOSKELETAL: Extremities without clubbing, cyanosis, or edema. No obvious deformities. NEUROLOGICAL: Awake and alert. No obvious cranial nerve deficits. Motor grossly within normal limits. 4 out of 5 muscle strength in the arms and legs. Normal speech. PSYCHIATRIC: INAppropriate mood and affect; insight and judgment ABnormal. Very poor historian Medications and IVs Current Medications Acetaminophen (Tylenol Supp) 650 mg ONCE ONCE RECTAL Last administered on 05/07at 13:40; Start 05/07/18 at 13:15; Stop 05/07/18 at 13:16; Status DC Sodium Chloride 1,000 ml @ 1,000 mls/hr Q1H ONCE IV Last administered on at 13:40; Start 05/07/18 at 13:09; Stop 05/07/18 at 14:08; Status DC Sodium Chloride 1,000 ml @ 1,000 mls/hr Q1H ONCE IV Last administered on at 13:40; Start 05/07/18 at 13:09; Stop 05/07/18 at 14:08; Status DC Piperacillin Sod/ Tazobactam Sod 100 ml @ 200 mls/hr ONCE STAT IV Last administered on 05/07/18at 16:15; Start 05/07/18 at 16:04; Stop 05/07/18 at 16:52 ; Status DC Sodium Chloride 1,000 ml @ 100 mls/hr Q10H IV Last administered on 05/07/18at 16:56; Start 05/07/18 at 16:38; Stop 05/07/18 at 18:06; Status DC Sodium Chloride (NS Flush) 2 ml UNSCH PRN IV FLUSH FLUSH AFTER USING IV ACCESS ; Start 05/07/18 at 16:45 Sodium Chloride (NS Flush) 2 ml BID IV FLUSH Last administered on 05/08/18at 09: 18; Start 05/07/18 at 21:00 Naloxone HCl (Narcan Inj) 0.4 mg UNSCH PRN IV PUSH SEE LABEL COMMENTS; Start at 16:45 Magnesium Hydroxide (Milk Of Magnesia Liq) 30 ml Q12H PRN PO Mild constipation ; Start 05/07/18 at 16:45 Sennosides (Senokot) 17.2 mg Q12H PRN PO Moderate constipation; Start 05/07/18 at 16:45 Bisacodyl (Dulcolax Supp) 10 mg DAILY PRN RECTAL SEVERE CONSITIPATION; Start at 16:45 Lactulose (Lactulose Liq) 30 ml DAILY PRN PO SEVERE CONSITIPATION; Start at 16:45 Ceftriaxone Sodium 1000 mg/ Sodium Chloride 100 ml @ 200 mls/hr Q24H IV Last administered on 05/07/18at 19:26; Start 05/07/18 at 18:00 Sodium Chloride 1,000 ml @ 84 mls/hr [id number] IV Last administered on at 09:11; Start 05/07/18 at 18:15; Stop 05/08/18 at 06:09; Status DC Aspirin (Aspirin) 325 mg ONCE ONCE PO Last administered on 05/07/18at 19:27; Start 05/07/18 at 18:15; Stop 05/07/18 at 18:42; Status DC Aspirin (Aspirin) 325 mg DAILY PO Last administered on 05/08/18at 09:10; Start 05/08/18 at 09:00 Potassium Chloride (KCl) 30 meq Q2H PO Last administered on 05/08/18at 11:01; Start 05/08/18 at 08:00; Stop 05/08/18 at 10:01; Status DC Potassium Chloride 100 ml @ 50 mls/hr Q2H IV Last administered on 05/08/18at 13 :12; Start 05/08/18 at 09:00; Stop 05/08/18 at 18:59 A/P Problem List: (1) UTI (urinary tract infection) ICD Code: N39.0 - Urinary tract infection, site not specified Status: Acute (2) Elevated troponin ICD Code: R74.8 - Abnormal levels of other serum enzymes Status: Acute Assessment and Plan UTI Patient endorses increased urinary frequency White blood cell count on admission 7.1 neutrophils 84 Urinalysis reviewed and reveals small amount of leukocyte esterase with rare bacteria culture pending Patient given IV Zosyn 1 in emergency department Continue IV Rocephin 1 g daily Elevated troponin Troponin on admission 0.10 patient denies chest pain Initial EKG obtained and reveals sinus bradycardia rate 53, prolonged QT interval 538 discussed results and EKG with supervising physician Dr. Marques Consult cardiology--wants an echocardiogram only We will trend serial troponin and serial EKG aspirin daily lipid profile in AM continuous telemetry patient was hypotensive on admission will hold off on BB Weakness Consult physical therapy Mild hypernatremia sodium 146 Continue IV fluids half-normal saline at 100 mL's per hour 1 L Recheck BMP in a.m. AIDS HIV diagnosed with AIDS October 2014 appears to be end stage will consult palliative care to assist in establishing goals of care noncompliance with treatment Consult case management patient will likely need SNF VS HOSPICE at time of DC DVT prophylaxis with SCDs Palliative care team has been consulted DCF I believe is involved Discharge Planning PT and OT will need safe place for dc at discharge Problem Qualifiers (1) UTI (urinary tract infection): Qualified Codes: N39.0 - Urinary tract infection, site not specified Madhu Cabezas DO May 08, 2018 14:10
[2018-05-08] MEDS: cefTRIAXone INJ 1,000 MG in SODIUM CHLORIDE 0.9% INJ 100 ML IV SCH (19:16)
[2018-05-09] VITALS (7 sets, daily range): BP systolic 103–141; BP diastolic 63–97; PULSE 55–63; RESP 16–20; TEMP 97.3–98.4; O2SAT 96–100
[2018-05-09] MEDS: SODIUM CHLORIDE 0.9% FLUSH 10 ML FLUSH IV FLUSH SCH ×2 (09:00→21:00)
[2018-05-09] MEDS: ASPIRIN 325 MG TAB PO SCH (09:06)
--- NOTE | 2018-05-09 12:08 | HHI.PR ---
Subjective Remarks This a 57-year-old male patient with past medical history which includes HIV diagnosed with AIDS October 2014, hepatitis C and tuberculosis. Patient presented to the emergency department for evaluation from home for altered mental status. Patient is able to give me his name able to tell me he is at [facility] but is unable to tell me month day or year, patient also appears to be a poor historian and has limited ability recalling details. Information gathered from patient physical exam and prior computerized charting. 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 There were cockroaches, animals and filthy conditions the patient was living in. Patient likely has not had his medications in some time. At this time patient denies shortness of breath chest pain nausea vomiting diarrhea constipation fevers chills cough congestion or shortness of breath. Patient also denies dysuria but does endorse increased urinary frequency. Patient noted to be thin/cachectic but denies recent weight loss and reports good appetite. 05-08 patient is very poor historian NOT SURE WHERE HE LIVES NEEDS PT AND OT NOT ON ANY MEDICATIONS AT HOME DW RN AND PT AND CM 05-09 NO NEW COMPLAINTS TODAY GRAM POSITIVE COCCI ON ROCEPHIN LABS ARE STILL PENDING NOT SURE IF PATIENT REFUSED? HE IS A POOR HISTORIAN DW RN AND PT AM LABS Objective Vitals Vital Signs Date Time Temp Pulse Resp B/P (MAP) Pulse Ox O2 Delivery O2 Flow Rate FiO2 05/09/18 09:30 Room Air 05/09/18 08:00 97.3 60 20 111/71 (84) 05/09/18 04:00 98.1 60 16 103/67 (79) 100 05/09/18 00:00 98.1 63 16 104/63 (77) 100 05/08/18 23:41 72 05/08/18 20:00 Room Air 05/08/18 20:00 98.4 67 18 107/69 (82) 100 05/08/18 19:45 60 05/08/18 16:00 97.9 58 20 118/63 (81) 100 I/O 05/08/18 05/08/18 05/08/18 05/09/18 05/09/18 05/09/18 06:59 14:59 22:59 06:59 14:59 22:59 Intake Total 0 ml 100 ml 3420 ml 480 ml Output Total 750 ml 200 ml 400 ml Balance -750 ml 100 ml 3220 ml 80 ml Intake Oral 0 ml 720 ml 480 ml IV Total 100 ml 2700 ml Output Urine Total 750 ml 200 ml 400 ml # Voids 2 2 # Bowel Movements 0 1 2 Result Diagram: 05/08/18 0430 05/08/18 0430 Other Results Laboratory Tests Test 05/07/18 13:30 05/07/18 15:19 05/07/18 21:08 05/08/18 04:30 White Blood Count 7.1 TH/MM3 5.1 TH/MM3 Red Blood Count 3.06 MIL/MM3 2.91 MIL/MM3 Hemoglobin 10.1 GM/DL 9.7 GM/DL Hematocrit 28.9 % 28.1 % Mean Corpuscular Volume 94.5 FL 96.3 FL Mean Corpuscular Hemoglobin 33.0 PG 33.4 PG Mean Corpuscular Hemoglobin Concent 34.9 % 34.6 % Red Cell Distribution Width 14.4 % 14.4 % Platelet Count 131 TH/MM3 103 TH/MM3 Mean Platelet Volume 9.1 FL 9.6 FL CBC Comment AUTO DIFF AUTO DIFF Differential Total Cells Counted 100 100 Neutrophils % (Manual) 84 % 77 % Band Neutrophils % 9 % 13 % Lymphocytes % 2 % 7 % Monocytes % 5 % 2 % Neutrophils # (Manual) 6.6 TH/MM3 4.6 TH/MM3 Nucleated Red Blood Cells 1 /100 WBC Differential Comment FINAL DIFF MANUAL FINAL DIFF MANUAL Toxic Granulation 1+ Toxic Vacuolation PRESENT PRESENT Platelet Estimate LOW LOW Platelet Morphology Comment NORMAL NORMAL Prothrombin Time 12.4 SEC Prothromb Time International Ratio 1.2 RATIO Activated Partial Thromboplast Time 27.7 SEC Blood Urea Nitrogen 10 MG/DL 8 MG/DL Creatinine 1.06 MG/DL 0.87 MG/DL Random Glucose 112 MG/DL 77 MG/DL Total Protein 7.5 GM/DL 6.4 GM/DL Albumin 2.1 GM/DL 1.7 GM/DL Calcium Level 7.8 MG/DL 7.2 MG/DL Magnesium Level 2.0 MG/DL Alkaline Phosphatase 69 U/L 60 U/L Aspartate Amino Transf (AST/SGOT) 78 U/L 89 U/L Alanine Aminotransferase (ALT/SGPT) 45 U/L 41 U/L Total Bilirubin 1.0 MG/DL 0.8 MG/DL Sodium Level 146 MEQ/L 142 MEQ/L Potassium Level 3.5 MEQ/L 2.8 MEQ/L Chloride Level 115 MEQ/L 113 MEQ/L Carbon Dioxide Level 21.4 MEQ/L 19.1 MEQ/L Anion Gap 10 MEQ/L 10 MEQ/L Estimat Glomerular Filtration Rate 87 ML/MIN 109 ML/MIN Lactic Acid Level 2.0 mmol/L Total Creatine Kinase 455 U/L 944 U/L 966 U/L Creatine Kinase MB 2.0 NG/ML 5.2 NG/ML 8.4 NG/ML Creatine Kinase MB % 0.4 % 0.6 % 0.9 % Troponin I 0.10 NG/ML 0.10 NG/ML 0.08 NG/ML Urine Color [place]ila Urine Turbidity HAZY Urine pH 6.0 Urine Specific [place] 1.019 Urine Protein NEG mg/dL Urine Glucose (UA) NEG mg/dL Urine Ketones NEG mg/dL Urine Occult Blood MOD Urine Nitrite NEG Urine Bilirubin NEG Urine Urobilinogen 4.0 OR GREATER mg/dL Urine Leukocyte Esterase SMALL Urine RBC 5 /hpf Urine WBC 4 /hpf Urine Squamous Epithelial Cells 2 /hpf Urine Bacteria RARE /hpf Microscopic Urinalysis Comment CATH-CULTURE IND Myelocytes 1 % Keratocytes 1+ Protein Corrected Calcium 7.6 MG/DL Triglycerides Level 157 MG/DL Cholesterol Level 68 MG/DL LDL Cholesterol 23 MG/DL HDL Cholesterol 13.5 MG/DL Cholesterol/HDL Ratio 5.03 RATIO Imaging Laboratory Tests Test 05/07/18 13:30 05/07/18 15:19 05/07/18 21:08 05/08/18 04:30 White Blood Count 7.1 TH/MM3 5.1 TH/MM3 Red Blood Count 3.06 MIL/MM3 2.91 MIL/MM3 Hemoglobin 10.1 GM/DL 9.7 GM/DL Hematocrit 28.9 % 28.1 % Mean Corpuscular Volume 94.5 FL 96.3 FL Mean Corpuscular Hemoglobin 33.0 PG 33.4 PG Mean Corpuscular Hemoglobin Concent 34.9 % 34.6 % Red Cell Distribution Width 14.4 % 14.4 % Platelet Count 131 TH/MM3 103 TH/MM3 Mean Platelet Volume 9.1 FL 9.6 FL CBC Comment AUTO DIFF AUTO DIFF Differential Total Cells Counted 100 100 Neutrophils % (Manual) 84 % 77 % Band Neutrophils % 9 % 13 % Lymphocytes % 2 % 7 % Monocytes % 5 % 2 % Neutrophils # (Manual) 6.6 TH/MM3 4.6 TH/MM3 Nucleated Red Blood Cells 1 /100 WBC Differential Comment FINAL DIFF MANUAL FINAL DIFF MANUAL Toxic Granulation 1+ Toxic Vacuolation PRESENT PRESENT Platelet Estimate LOW LOW Platelet Morphology Comment NORMAL NORMAL Prothrombin Time 12.4 SEC Prothromb Time International Ratio 1.2 RATIO Activated Partial Thromboplast Time 27.7 SEC Blood Urea Nitrogen 10 MG/DL 8 MG/DL Creatinine 1.06 MG/DL 0.87 MG/DL Random Glucose 112 MG/DL 77 MG/DL Total Protein 7.5 GM/DL 6.4 GM/DL Albumin 2.1 GM/DL 1.7 GM/DL Calcium Level 7.8 MG/DL 7.2 MG/DL Magnesium Level 2.0 MG/DL Alkaline Phosphatase 69 U/L 60 U/L Aspartate Amino Transf (AST/SGOT) 78 U/L 89 U/L Alanine Aminotransferase (ALT/SGPT) 45 U/L 41 U/L Total Bilirubin 1.0 MG/DL 0.8 MG/DL Sodium Level 146 MEQ/L 142 MEQ/L Potassium Level 3.5 MEQ/L 2.8 MEQ/L Chloride Level 115 MEQ/L 113 MEQ/L Carbon Dioxide Level 21.4 MEQ/L 19.1 MEQ/L Anion Gap 10 MEQ/L 10 MEQ/L Estimat Glomerular Filtration Rate 87 ML/MIN 109 ML/MIN Lactic Acid Level 2.0 mmol/L Total Creatine Kinase 455 U/L 944 U/L 966 U/L Creatine Kinase MB 2.0 NG/ML 5.2 NG/ML 8.4 NG/ML Creatine Kinase MB % 0.4 % 0.6 % 0.9 % Troponin I 0.10 NG/ML 0.10 NG/ML 0.08 NG/ML Urine Color [place] Urine Turbidity HAZY Urine pH 6.0 Urine Specific [place] 1.019 Urine Protein NEG mg/dL Urine Glucose (UA) NEG mg/dL Urine Ketones NEG mg/dL Urine Occult Blood MOD Urine Nitrite NEG Urine Bilirubin NEG Urine Urobilinogen 4.0 OR GREATER mg/dL Urine Leukocyte Esterase SMALL Urine RBC 5 /hpf Urine WBC 4 /hpf Urine Squamous Epithelial Cells 2 /hpf Urine Bacteria RARE /hpf Microscopic Urinalysis Comment CATH-CULTURE IND Myelocytes 1 % Keratocytes 1+ Protein Corrected Calcium 7.6 MG/DL Triglycerides Level 157 MG/DL Cholesterol Level 68 MG/DL LDL Cholesterol 23 MG/DL HDL Cholesterol 13.5 MG/DL Cholesterol/HDL Ratio 5.03 RATIO Objective Remarks GENERAL: Awake alert oriented times person not so talkative not so cooperative dry skin SKIN: Warm and dry. Dry skin VITILIGO AND WHITE SKIN ALL OVER HIS BODY HEAD: Atraumatic. Normocephalic. EYES: Pupils equal and round. No scleral icterus. No injection or drainage. extraocular muscles intact ENT: No nasal bleeding or discharge. Mucous membranes pink and moist. Tongue is midline poor dentition NECK: Trachea midline. No JVD. Supple CARDIOVASCULAR: Regular rate and rhythm. S1-S2 no S3 or S4 RESPIRATORY: No accessory muscle use. Clear to auscultation. Breath sounds equal bilaterally. GASTROINTESTINAL: Abdomen soft, non-tender, nondistended. Hepatic and splenic margins not palpable. MUSCULOSKELETAL: Extremities without clubbing, cyanosis, or edema. No obvious deformities. NEUROLOGICAL: Awake and alert. No obvious cranial nerve deficits. Motor grossly within normal limits. 4 out of 5 muscle strength in the arms and legs. ABNormal speech. PSYCHIATRIC: INAppropriate mood and affect; insight and judgment ABnormal. Very poor historian Medications and IVs Current Medications Acetaminophen (Tylenol Supp) 650 mg ONCE ONCE RECTAL Last administered on 05/07at 13:40; Start 05/07/18 at 13:15; Stop 05/07/18 at 13:16; Status DC Sodium Chloride 1,000 ml @ 1,000 mls/hr Q1H ONCE IV Last administered on at 13:40; Start 05/07/18 at 13:09; Stop 05/07/18 at 14:08; Status DC Sodium Chloride 1,000 ml @ 1,000 mls/hr Q1H ONCE IV Last administered on at 13:40; Start 05/07/18 at 13:09; Stop 05/07/18 at 14:08; Status DC Piperacillin Sod/ Tazobactam Sod 100 ml @ 200 mls/hr ONCE STAT IV Last administered on 05/07/18at 16:15; Start 05/07/18 at 16:04; Stop 05/07/18 at 16:52 ; Status DC Sodium Chloride 1,000 ml @ 100 mls/hr Q10H IV Last administered on 05/07/18at 16:56; Start 05/07/18 at 16:38; Stop 05/07/18 at 18:06; Status DC Sodium Chloride (NS Flush) 2 ml UNSCH PRN IV FLUSH FLUSH AFTER USING IV ACCESS ; Start 05/07/18 at 16:45 Sodium Chloride (NS Flush) 2 ml BID IV FLUSH Last administered on 05/08/18at 21: 16; Start 05/07/18 at 21:00 Naloxone HCl (Narcan Inj) 0.4 mg UNSCH PRN IV PUSH SEE LABEL COMMENTS; Start at 16:45 Magnesium Hydroxide (Milk Of Magnesia Liq) 30 ml Q12H PRN PO Mild constipation ; Start 05/07/18 at 16:45 Sennosides (Senokot) 17.2 mg Q12H PRN PO Moderate constipation; Start 05/07/18 at 16:45 Bisacodyl (Dulcolax Supp) 10 mg DAILY PRN RECTAL SEVERE CONSITIPATION; Start at 16:45 Lactulose (Lactulose Liq) 30 ml DAILY PRN PO SEVERE CONSITIPATION; Start at 16:45 Ceftriaxone Sodium 1000 mg/ Sodium Chloride 100 ml @ 200 mls/hr Q24H IV Last administered on 05/08/18at 19:16; Start 05/07/18 at 18:00 Sodium Chloride 1,000 ml @ 84 mls/hr [id number] IV Last administered on at 09:11; Start 05/07/18 at 18:15; Stop 05/08/18 at 06:09; Status DC Aspirin (Aspirin) 325 mg ONCE ONCE PO Last administered on 05/07/18at 19:27; Start 05/07/18 at 18:15; Stop 05/07/18 at 18:42; Status DC Aspirin (Aspirin) 325 mg DAILY PO Last administered on 05/09/18at 09:06; Start 05/08/18 at 09:00 Potassium Chloride (KCl) 30 meq Q2H PO Last administered on 05/08/18at 11:01; Start 05/08/18 at 08:00; Stop 05/08/18 at 10:01; Status DC Potassium Chloride 100 ml @ 50 mls/hr Q2H IV Last administered on 05/08/18at 23 :12; Start 05/08/18 at 09:00; Stop 05/08/18 at 18:59; Status DC A/P Problem List: (1) UTI (urinary tract infection) ICD Code: N39.0 - Urinary tract infection, site not specified Status: Acute (2) Elevated troponin ICD Code: R74.8 - Abnormal levels of other serum enzymes Status: Acute Assessment and Plan UTI Patient endorses increased urinary frequency White blood cell count on admission 7.1 neutrophils 84 Urinalysis reviewed and reveals small amount of leukocyte esterase with rare bacteria culture pending Patient given IV Zosyn 1 in emergency department Continue IV Rocephin 1 g daily GRAM POSITIVE COCCI Elevated troponin Troponin on admission 0.10 patient denies chest pain Initial EKG obtained and reveals sinus bradycardia rate 53, prolonged QT interval 538 discussed results and EKG with supervising physician Dr. Marques Consult cardiology--wants an echocardiogram only We will trend serial troponin and serial EKG aspirin daily lipid profile in AM continuous telemetry patient was hypotensive on admission will hold off on BB Weakness Consult physical therapy AND OT Mild hypernatremia sodium 146 Continue IV fluids half-normal saline at 100 mL's per hour 1 L Recheck BMP in a.m. AIDS HIV diagnosed with AIDS October 2014 appears to be end stage will consult palliative care to assist in establishing goals of care noncompliance with treatment Consult case management patient will likely need SNF VS HOSPICE at time of DC DVT prophylaxis with SCDs Palliative care team has been consulted DCF I believe is involved HYPOKALEMIA REPLACE HYPOMAG REPLACE Discharge Planning PT and OT will need safe place for dc at discharge Problem Qualifiers (1) UTI (urinary tract infection): Qualified Codes: N39.0 - Urinary tract infection, site not specified Madhu Cabezas DO May 09, 2018 12:08
[2018-05-09 13:26] LABS: ALBUMIN 1.9 GM/DL (3.4-5.0); ALT (GPT) 48 U/L (12-78); BICARBONATE 17.5 MEQ/L (21.0-32.0); BLOOD UREA NITROGEN 4 MG/DL (7-18); CALCIUM 7.8 MG/DL (8.5-10.1); CHLORIDE 115 MEQ/L (98-107); CREATININE 0.78 MG/DL (0.60-1.30); GLOMERULAR FILTRATION RATE 123 ML/MIN (>89); GLUCOSE,RANDOM 77 MG/DL (74-106); MAGNESIUM 1.9 MG/DL (1.5-2.5); PHOSPHORUS 2.2 MG/DL (2.5-4.9); SODIUM (NA) 143 MEQ/L (136-145)
[2018-05-09 13:44] LABS: ALKALINE PHOSPHATASE 93 U/L (45-117); AST (GOT) 118 U/L (15-37); FREE T4 1.53 NG/DL (0.76-1.46); TOTAL BILIRUBIN ADULT 0.5 MG/DL (0.2-1.0); TOTAL PROTEIN 7.2 GM/DL (6.4-8.2)
[2018-05-09 13:49] LABS: AUTOMATED NEUTROPHIL # 2.4 TH/MM3 (1.8-7.7); BASOPHIL % 0.7 % (0.0-2.0); EOSINOPHIL # 0.1 TH/MM3 (0-0.4); EOSINOPHIL % 4.1 % (0.0-4.0); HEMATOCRIT 33.1 % (39.0-51.0); LYMPH % 16.5 % (9.0-44.0); LYMPHOCYTE # 0.5 TH/MM3 (1.0-4.8); MEAN CORPUSCULAR HEMOGLOBIN 33.7 PG (27.0-34.0); MEAN CORPUSCULAR HGB CONC 33.4 % (32.0-36.0); MEAN PLATELET VOLUME 9.5 FL (7.0-11.0); MONO % 6.7 % (0.0-8.0); MONOCYTE # 0.2 TH/MM3 (0-0.9); PLATELET COUNT 91 TH/MM3 (150-450); RED BLOOD COUNT 3.28 MIL/MM3 (4.50-5.90); RED CELL DISTRIBUTION WIDTH 15.8 % (11.6-17.2); WHITE BLOOD COUNT 3.3 TH/MM3 (4.0-11.0)
[2018-05-09 14:33] LABS: BANDS 15 % (0-6); LYMPHOCYTES 10 % (9-44); MONOCYTES 4 % (0-8); NEUTROPHIL # MANUAL DIFF 2.8 TH/MM3 (1.8-7.7); POLYS (SEG NEUTROPHILS) 71 % (16-70)
[2018-05-09 14:34] LABS: ACANTHOCYTES 1+ (NORMAL)
[2018-05-09 14:35] LABS: OVALOCYTES 1+ (NORMAL)
[2018-05-09 14:36] LABS: TOXIC GRANULATION 1+ (NORMAL)
[2018-05-09 16:19] LABS: HEMOGLOBIN A1C 4.5 % (4.3-6.0)
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
--- NOTE | 2018-05-09 17:48 | PD.CARD.PN ---
Subjective Subjective Remarks Denies CP or SOB, eating lunch Objective Medications Current Medications Medications (Trade) Dose Ordered Sig/Deb Route Start Time Stop Time Status Last Admin (NS Flush) 2 ml UNSCH PRN IV FLUSH 05/07/18 16:45 (NS Flush) 2 ml BID IV FLUSH 05/07/18 21:00 05/08/18 21:16 (Narcan Inj) 0.4 mg UNSCH PRN IV PUSH 05/07/18 16:45 (Milk Of Magnesia Liq) 30 ml Q12H PRN PO 05/07/18 16:45 (Senokot) 17.2 mg Q12H PRN PO 05/07/18 16:45 (Dulcolax Supp) 10 mg DAILY PRN RECTAL 05/07/18 16:45 (Lactulose Liq) 30 ml DAILY PRN PO 05/07/18 16:45 Ceftriaxone Sodium 1000 mg/ Sodium Chloride 100 ml @ 200 mls/hr Q24H IV 05/07/18 18:00 05/08/18 19:16 (Aspirin) 325 mg DAILY PO 05/08/18 09:00 05/09/18 09:06 Vital Signs / I&O Vital Signs Date Time Temp Pulse Resp B/P (MAP) Pulse Ox O2 Delivery O2 Flow Rate FiO2 05/09/18 12:00 97.5 55 20 109/74 (86) 96 05/09/18 09:30 Room Air 05/09/18 08:00 97.3 60 20 111/71 (84) 05/09/18 04:00 98.1 60 16 103/67 (79) 100 05/09/18 00:00 98.1 63 16 104/63 (77) 100 05/08/18 23:41 72 05/08/18 20:00 Room Air 05/08/18 20:00 98.4 67 18 107/69 (82) 100 05/08/18 19:45 60 I/O 05/08/18 05/08/18 05/08/18 05/09/18 05/09/18 05/09/18 07:00 15:00 23:00 07:00 15:00 23:00 Intake Total 0 ml 100 ml 3420 ml 480 ml Output Total 750 ml 200 ml 400 ml Balance -750 ml 100 ml 3220 ml 80 ml Intake Oral 0 ml 720 ml 480 ml IV Total 100 ml 2700 ml Output Urine Total 750 ml 200 ml 400 ml # Voids 2 2 # Bowel Movements 0 1 2 Physical Exam GENERAL: In NAD. SKIN: Warm and dry. HEAD: Normocephalic. EYES: No scleral icterus. No injection or drainage. NECK: Supple, trachea midline. No JVD or lymphadenopathy. CARDIOVASCULAR: Regular rate and rhythm without murmurs, gallops, or rubs. RESPIRATORY: Breath sounds equal bilaterally. No accessory muscle use. GASTROINTESTINAL: Abdomen soft, non-tender, nondistended. MUSCULOSKELETAL: No cyanosis, or edema. Skin depigmentation Laboratory Laboratory Tests Test 05/09/18 12:37 White Blood Count 3.3 TH/MM3 Red Blood Count 3.28 MIL/MM3 Hemoglobin 11.0 GM/DL Hematocrit 33.1 % Mean Corpuscular Volume 101.0 FL Mean Corpuscular Hemoglobin 33.7 PG Mean Corpuscular Hemoglobin Concent 33.4 % Red Cell Distribution Width 15.8 % Platelet Count 91 TH/MM3 Mean Platelet Volume 9.5 FL Neutrophils (%) (Auto) 72.0 % Lymphocytes (%) (Auto) 16.5 % Monocytes (%) (Auto) 6.7 % Eosinophils (%) (Auto) 4.1 % Basophils (%) (Auto) 0.7 % Neutrophils # (Auto) 2.4 TH/MM3 Lymphocytes # (Auto) 0.5 TH/MM3 Monocytes # (Auto) 0.2 TH/MM3 Eosinophils # (Auto) 0.1 TH/MM3 Basophils # (Auto) 0.0 TH/MM3 CBC Comment AUTO DIFF Differential Total Cells Counted 100 Neutrophils % (Manual) 71 % Band Neutrophils % 15 % Lymphocytes % 10 % Monocytes % 4 % Neutrophils # (Manual) 2.8 TH/MM3 Differential Comment FINAL DIFF MANUAL Toxic Granulation 1+ Platelet Estimate LOW Platelet Morphology Comment NORMAL Ovalocytes 1+ Acanthocytes 1+ Hematology Comments Blood Urea Nitrogen 4 MG/DL Creatinine 0.78 MG/DL Random Glucose 77 MG/DL Total Protein 7.2 GM/DL Albumin 1.9 GM/DL Calcium Level 7.8 MG/DL Phosphorus Level 2.2 MG/DL Magnesium Level 1.9 MG/DL Alkaline Phosphatase 93 U/L Aspartate Amino Transf (AST/SGOT) 118 U/L Alanine Aminotransferase (ALT/SGPT) 48 U/L Total Bilirubin 0.5 MG/DL Sodium Level 143 MEQ/L Potassium Level 4.2 MEQ/L Chloride Level 115 MEQ/L Carbon Dioxide Level 17.5 MEQ/L Anion Gap 11 MEQ/L Estimat Glomerular Filtration Rate 123 ML/MIN Hemoglobin A1c 4.5 % Free Thyroxine 1.53 NG/DL Thyroid Stimulating Hormone 3rd Gen 2.030 uIU/ML Assessment and Plan Problem List: (1) Altered mental status ICD Codes: R41.82 - Altered mental status, unspecified (2) UTI (urinary tract infection) ICD Codes: N39.0 - Urinary tract infection, site not specified Status: Acute (3) AIDS ICD Codes: B20 - AIDS Status: Acute (4) Elevated troponin ICD Codes: R74.8 - Abnormal levels of other serum enzymes Status: Acute (5) Noncompliance ICD Codes: Z91.19 - Patient's noncompliance with other medical treatment and regimen Assessment and Plan Continue current program. Await echo. Continue tx for UTI. Increase activity. Seen by palliative service. Problem Qualifiers (1) UTI (urinary tract infection): Qualified Codes: N39.0 - Urinary tract infection, site not specified Miki Becerra MD May 09, 2018 17:48
[2018-05-09] MEDS: cefTRIAXone INJ 1,000 MG in SODIUM CHLORIDE 0.9% INJ 100 ML IV SCH (18:54)
[2018-05-10] VITALS (7 sets, daily range): BP systolic 121–173; BP diastolic 60–74; PULSE 54–95; RESP 16–18; TEMP 97.9–98.1; O2SAT 98–100
[2018-05-10] MEDS: ASPIRIN 325 MG TAB PO SCH (08:19)
[2018-05-10] MEDS: SODIUM CHLORIDE 0.9% FLUSH 10 ML FLUSH IV FLUSH SCH ×2 (08:19→20:38)
[2018-05-10] MEDS ORDERED: CIPROFLOXACIN 400 MG PREMIX 200 ML IV SCH (11:15)
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
--- NOTE | 2018-05-10 11:26 | PD.WCN.NOT ---
Wound Consult Description: Received consult wound management scrotal area wounds Communicated with: CHANI Gonzalez [address] [place] [address] and Doctor Jocelynn Recommendation: Please cleanse wounds to anterior and posterior scrotum with normal saline and pat dry. Apply maxorb II to wound beds only cut to fit and not on intact skin Apply Calazime skin protectant paste to periwounds. Cover with ABD pad, secured with mesh underwear. Please change dressing as needed. Additional Information: Patient seen on [address] for evaluation of wounds to scrotal area. Patient is laying in bed for wound assessment. Spoke with patient about wounds to scrotal area. Patient is a poor historian and is unable to explain how wounds occurred. Wounds assessed to to anterior and posterior aspects of scrotum. Posterior scrotal wound one measures ~4.5cm x ~5cm x ~0.3cm. Wound presents with 100% pink tissue and moderate thin yellow/serous drainage without odor. Periwound presents with white skin discoloration, but is otherwise unremarkable.Anterior scrotal wound two measures ~1.5cm x ~1cm x ~0.2cm. Wound two also presents with 100% pink tissue. Minimal thin/yellow drainage is noted that is without odor. Periwound also presents with white skin discoloration that is scattered. Patient is laying on urine soaked ultra sorb pads that are staggered on thin turn sheet. CHANI Gonzalez came in room with new lininen and ultra sorb pads. Patient was cleansed with bath wipes and Bed linen and ultra sorbs were changed. Patient is agitated and difficult with turns, requires constant coaxing and redirecting. Recommendations noted above. RN to apply when supplies arrive. Saritha Sharma [facility] May 10, 2018 11:26
[2018-05-10] MEDS ORDERED: VANCOMYCIN INJ 1,000 MG in SODIUM CHLOR 0.9% 250 ML INJ 250 ML IV ONE (12:00)
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
[2018-05-10] MEDS ORDERED: Vancomycin Consult Pharmacy 1 EA OTHER SCH (13:00)
[2018-05-10] MEDS ORDERED: ZIPRASIDONE MESYLATE 20 MG VIAL IM PRN (13:15)
[2018-05-10] MEDS ORDERED: DIATRIZOATE MEGLUM/DIATRIZOATE SOD 9 ML CUP PO ONE (14:15)
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
[2018-05-10] MEDS ORDERED: VANCOMYCIN INJ 1,250 MG in SODIUM CHLOR 0.9% 250 ML INJ 250 ML IV ONE (16:00)
--- NOTE | 2018-05-10 16:16 | PD.CARD.PN ---
Subjective Subjective Remarks Denies CP or SOB, feels better, eating well Objective Medications Current Medications Medications (Trade) Dose Ordered Sig/Deb Route Start Time Stop Time Status Last Admin (NS Flush) 2 ml UNSCH PRN IV FLUSH 05/07/18 16:45 (NS Flush) 2 ml BID IV FLUSH 05/07/18 21:00 05/09/18 21:00 (Narcan Inj) 0.4 mg UNSCH PRN IV PUSH 05/07/18 16:45 (Milk Of Magnesia Liq) 30 ml Q12H PRN PO 05/07/18 16:45 (Senokot) 17.2 mg Q12H PRN PO 05/07/18 16:45 (Dulcolax Supp) 10 mg DAILY PRN RECTAL 05/07/18 16:45 (Lactulose Liq) 30 ml DAILY PRN PO 05/07/18 16:45 (Aspirin) 325 mg DAILY PO 05/08/18 09:00 05/09/18 09:06 Pharmacy Profile Note 0 ml @ 0 mls/hr UNSCH OTHER 05/10/18 13:00 (Geodon Inj) 10 mg Q12H PRN IM 05/10/18 13:15 05/10/18 15:24 Vancomycin HCl 1250 mg/Sodium Chloride 262.5 ml @ 250 mls/hr ONCE ONCE IV 05/10/18 16:00 05/10/18 17:02 Vancomycin HCl 750 mg/Sodium Chloride 257.5 ml @ 250 mls/hr Q12H IV 05/11/18 04:00 ([facility] Ordered Lab Info) SPECIFIC LAB TO BE ... ONCE ONCE .XX 05/12/18 03:45 05/12/18 03:46 Vital Signs / I&O Vital Signs Date Time Temp Pulse Resp B/P (MAP) Pulse Ox O2 Delivery O2 Flow Rate FiO2 05/10/18 08:26 57 05/10/18 08:00 Room Air 05/10/18 08:00 98.1 54 18 121/71 (88) 100 05/10/18 04:00 Room Air 05/10/18 04:00 97.9 57 18 121/60 (80) 100 05/10/18 00:07 97.9 57 18 121/60 (80) 100 05/10/18 00:00 Room Air 05/09/18 23:40 58 05/09/18 20:00 Room Air 05/09/18 20:00 98.3 62 18 141/65 (90) 100 I/O 05/09/18 05/09/18 05/09/18 05/10/18 05/10/18 05/10/18 07:00 15:00 23:00 07:00 15:00 23:00 Intake Total 580 ml 820 ml 440 ml Output Total 400 ml 200 ml 475 ml Balance 180 ml 620 ml -35 ml Intake Oral 480 ml 720 ml 440 ml IV Total 100 ml 100 ml Output Urine Total 400 ml 200 ml 475 ml # Voids 2 1 # Bowel Movements 2 1 Physical Exam GENERAL: In NAD. SKIN: Warm and dry. HEAD: Normocephalic. EYES: No scleral icterus. No injection or drainage. NECK: Supple, trachea midline. No JVD or lymphadenopathy. CARDIOVASCULAR: Regular rate and rhythm without murmurs, gallops, or rubs. RESPIRATORY: Breath sounds equal bilaterally. No accessory muscle use. GASTROINTESTINAL: Abdomen soft, non-tender, nondistended. MUSCULOSKELETAL: No cyanosis, or edema. Skin depigmentation Assessment and Plan Problem List: (1) Altered mental status ICD Codes: R41.82 - Altered mental status, unspecified (2) UTI (urinary tract infection) ICD Codes: N39.0 - Urinary tract infection, site not specified Status: Acute (3) AIDS ICD Codes: B20 - AIDS Status: Acute (4) Elevated troponin ICD Codes: R74.8 - Abnormal levels of other serum enzymes Status: Acute (5) Noncompliance ICD Codes: Z91.19 - Patient's noncompliance with other medical treatment and regimen Assessment and Plan No new cardiac issues. No angina or CHF. Continue current program including tx for UTI. Increase activity. Followed by palliative service. Problem Qualifiers (1) UTI (urinary tract infection): Qualified Codes: N39.0 - Urinary tract infection, site not specified Miki Becerra MD May 10, 2018 16:16
[2018-05-10] MEDS ORDERED: IOHEXOL 350 MG/ML 10 ML VIAL (for RAD DIAG) IVCONTRAST ONE (19:39)
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
--- NOTE | 2018-05-10 22:00 | RADRPT ---
EXAM DATE: 05/10/2018 8:01 PM EDT AGE/SEX: 57 years / Male INDICATIONS: Shortness of breath; possible pneumonia. CLINICAL DATA: This is the patient's initial encounter. Patient reports that signs and symptoms have been present for 1 day and indicates a pain score of Nonresponsive. MEDICAL/SURGICAL HISTORY: HIV. Hepatitis C. Cardiovascular disease. Encephalopathy None. RADIATION DOSE: 7.64 CTDI (mGy) COMPARISON: No prior exams available for comparison. TECHNIQUE: Multiple contiguous axial images were obtained through the chest during bolus infusion of 95 ml Omnipaque 350 (iohexol) nonionic water-soluble contrast as a cumulative dose for multiple exa ms. Images were obtained in suspended respiration using multiple row detector helical technique. U sing automated exposure control and adjustment of the mA and/or kV according to patient size, radiati on dose was kept as low as reasonably achievable to obtain optimal diagnostic quality images. DICOM format image data is available electronically for review and comparison. FINDINGS: The lungs are free of acute parenchymal opacity. No pulmonary nodules or pleural effusions are identi fied. There are small bulla in the lung apices. Examination of the mediastinum demonstrates no abnormally enlarged lymph nodes by CT criteria. No axi llary or hilar abnormalities are identified. Coronary artery calcifications are present. CONCLUSION: No evidence of acute thoracic abnormality. No masses are identified. Electronically signed by: Shiv Renteria MD 05/10/2018 9:59 PM EDT
[2018-05-11] VITALS (9 sets, daily range): BP systolic 92–129; BP diastolic 55–85; PULSE 57–81; RESP 16–21; TEMP 97.4–98.6; O2SAT 100
[2018-05-11 03:49] LABS: CD3-/CD16+CD56+ PERCENT 7 % (4-25); CD3-CD16+CD56+ (ABSOLUTE) 40 (70-760); LYMPHOCYTES, ABSOLUTE 607 (850-3900)
[2018-05-11] MEDS ORDERED: VANCOMYCIN INJ 750 MG in SODIUM CHLOR 0.9% 250 ML INJ 250 ML IV SCH (04:00)
[2018-05-11] MEDS: SODIUM CHLORIDE 0.9% FLUSH 10 ML FLUSH IV FLUSH SCH ×2 (08:30→21:00)
[2018-05-11] MEDS: ASPIRIN 325 MG TAB PO SCH (08:30)
--- NOTE | 2018-05-11 09:11 | HHI.PR ---
Subjective Remarks Patient seen and examined this morning, their vitals are stable and the patient is afebrile. Patient denies chest pain or difficulty breathing. Reports he has no family. Objective Vital Signs Date Time Temp Pulse Resp B/P (MAP) Pulse Ox O2 Delivery O2 Flow Rate FiO2 05/11/18 04:00 97.8 70 16 118/64 (82) 100 05/11/18 04:00 Room Air 05/11/18 04:00 68 05/11/18 00:00 98.6 75 18 104/64 (77) 100 05/11/18 00:00 Room Air 05/11/18 00:00 76 05/10/18 20:25 97.9 89 16 173/74 (107) 98 05/10/18 20:00 Room Air 05/10/18 20:00 95 05/10/18 12:00 66 I/O 05/10/18 05/10/18 05/10/18 05/11/18 05/11/18 05/11/18 07:00 15:00 23:00 07:00 15:00 23:00 Intake Total 440 ml 480 ml Output Total 475 ml Balance -35 ml 480 ml Intake Oral 440 ml 480 ml Output Urine Total 475 ml # Voids 1 4 2 # Bowel Movements 2 2 Result Diagram: 05/09/18 1237 05/09/18 1237 Imaging Last Impressions Chest CT 05/10/18 0000 Signed Impressions: CONCLUSION: No evidence of acute thoracic abnormality. No masses are identified. Abdomen/Pelvis CT 05/10/18 0000 Signed Impressions: CONCLUSION: No evidence of acute abdominal or pelvic process. No masses are identified. Cholelithiasis Chest X-Ray 05/07/18 1309 Signed Impressions: CONCLUSION: 1. No acute abnormality or significant interval change. Head CT 05/07/18 0000 Signed Impressions: CONCLUSION: 1. No acute intracranial abnormality is identified. 2. There is mild generalized atrophy and mild periventricular white matter bubba nge. Objective Remarks GENERAL: Thin, cachectic appearing male SKIN: Warm and dry. Multiple hypopigmented needed patches of skin diffusely on body HEAD: Normocephalic. EYES: No scleral icterus. No injection or drainage. NECK: Supple, trachea midline. No JVD or lymphadenopathy. CARDIOVASCULAR: Regular rate and rhythm without murmurs, gallops, or rubs. RESPIRATORY: Breath sounds equal bilaterally. No accessory muscle use. GASTROINTESTINAL: Abdomen soft, non-tender, nondistended. MUSCULOSKELETAL: No cyanosis, or edema. Neuro: Appears alert and appropriate A/P Problem List: (1) Noncompliance ICD Code: Z91.19 - Patient's noncompliance with other medical treatment and regimen (2) History of TB (tuberculosis) ICD Code: Z86.11 - History of TB (tuberculosis) Status: Acute (3) Altered mental status ICD Code: R41.82 - Altered mental status, unspecified (4) AIDS ICD Code: B20 - AIDS Status: Acute (5) UTI (urinary tract infection) ICD Code: N39.0 - Urinary tract infection, site not specified Status: Acute Assessment and Plan In summary this is a 57-year-old patient with a medically significant for HIV with AIDS, hepatitis C and tuberculosis. He presented to the ER for altered mental status. 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 No cardiac issues. No angina or CHF. Noncompliance with treatment Case management consulted Patient likely needs snf versus hospice at time of discharge DCF is involved Palliative Care is following DVT prophy bilat SCDs Discharge Planning will need SNF upon dc no dc plan in place yet, workup is still pending Problem Qualifiers (1) UTI (urinary tract infection): Qualified Codes: N39.0 - Urinary tract infection, site not specified Lisa Wood MD May 11, 2018 09:11
[2018-05-11 09:54] LABS: HEMATOCRIT 26.4 % (39.0-51.0); HEMOGLOBIN 9.2 GM/DL (13.0-17.0); MEAN CELL VOLUME 95.5 FL (80.0-100.0); MEAN CORPUSCULAR HEMOGLOBIN 33.3 PG (27.0-34.0); MEAN CORPUSCULAR HGB CONC 34.9 % (32.0-36.0); MEAN PLATELET VOLUME 9.1 FL (7.0-11.0); PLATELET COUNT 123 TH/MM3 (150-450); RED BLOOD COUNT 2.76 MIL/MM3 (4.50-5.90); RED CELL DISTRIBUTION WIDTH 14.9 % (11.6-17.2); WHITE BLOOD COUNT 3.7 TH/MM3 (4.0-11.0)
[2018-05-11 10:24] LABS: ALKALINE PHOSPHATASE 88 U/L (45-117); ALT (GPT) 46 U/L (12-78); AST (GOT) 92 U/L (15-37); BICARBONATE 20.4 MEQ/L (21.0-32.0); BLOOD UREA NITROGEN 4 MG/DL (7-18); C-REACTIVE PROTEIN LESS THAN 0.29 MG/DL (0.00-0.30); CALCIUM 7.9 MG/DL (8.5-10.1); CHLORIDE 113 MEQ/L (98-107); CREATININE 0.67 MG/DL (0.60-1.30); GLOMERULAR FILTRATION RATE 147 ML/MIN (>89); GLUCOSE,RANDOM 79 MG/DL (74-106); MAGNESIUM 1.9 MG/DL (1.5-2.5); PHOSPHORUS 3.2 MG/DL (2.5-4.9); SODIUM (NA) 144 MEQ/L (136-145); TOTAL BILIRUBIN ADULT 0.6 MG/DL (0.2-1.0); TOTAL PROTEIN 6.6 GM/DL (6.4-8.2)
[2018-05-11] MEDS ORDERED: POTASSIUM CHLORIDE 25 MEQ EFFERVESCENT TAB PO ONE (14:00)
[2018-05-11 14:15] LABS: BANDS 5 % (0-6); LYMPHOCYTES 2 % (9-44); MONOCYTES 6 % (0-8); NEUTROPHIL # MANUAL DIFF 3.4 TH/MM3 (1.8-7.7); POLYS (SEG NEUTROPHILS) 87 % (16-70)
[2018-05-11 14:16] LABS: OVALOCYTES 1+ (NORMAL)
[2018-05-11] MEDS: VANCOMYCIN 1,000 MG/NS 250 ML IV SCH ×2 (15:14)
[2018-05-12] VITALS (8 sets, daily range): BP systolic 97–130; BP diastolic 66–79; PULSE 58–71; RESP 16–21; TEMP 97.8–98.3; O2SAT 98–100
[2018-05-12] MEDS: VANCOMYCIN 1,000 MG/NS 250 ML IV SCH ×4 (03:01→15:55)
[2018-05-12] MEDS ORDERED: PHARMACY ORDERED LAB ONE (03:45)
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
[2018-05-12] MEDS: SODIUM CHLORIDE 0.9% FLUSH 10 ML FLUSH IV FLUSH SCH ×2 (09:03→21:00)
[2018-05-12] MEDS: ASPIRIN 325 MG TAB PO SCH (09:03)
[2018-05-13] VITALS: BP 132/72; PULSE 65; RESP 17; TEMP 99; O2SAT 99
[2018-05-13 04:00] VITALS: PULSE 70
[2018-05-13] MEDS: VANCOMYCIN 1,000 MG/NS 250 ML IV SCH ×4 (04:19→18:32)
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
[2018-05-13 08:10] VITALS: BP 128/87; PULSE 68; RESP 17; TEMP 97.9; O2SAT 100
[2018-05-13] MEDS: ASPIRIN 325 MG TAB PO SCH (11:02)
[2018-05-13] MEDS: SODIUM CHLORIDE 0.9% FLUSH 10 ML FLUSH IV FLUSH SCH ×2 (11:02→20:56)
[2018-05-13 12:10] VITALS: BP 99/65; PULSE 69; RESP 17; TEMP 98; O2SAT 100
--- NOTE | 2018-05-13 15:54 | PD.CARD.PN ---
Subjective Subjective Remarks Denies CP or SOB, no c/o, states he feels fine Objective Medications Current Medications Medications (Trade) Dose Ordered Sig/Deb Route Start Time Stop Time Status Last Admin (NS Flush) 2 ml UNSCH PRN IV FLUSH 05/07/18 16:45 (NS Flush) 2 ml BID IV FLUSH 05/07/18 21:00 05/13/18 11:02 (Narcan Inj) 0.4 mg UNSCH PRN IV PUSH 05/07/18 16:45 (Milk Of Magnesia Liq) 30 ml Q12H PRN PO 05/07/18 16:45 (Senokot) 17.2 mg Q12H PRN PO 05/07/18 16:45 (Dulcolax Supp) 10 mg DAILY PRN RECTAL 05/07/18 16:45 (Lactulose Liq) 30 ml DAILY PRN PO 05/07/18 16:45 (Aspirin) 325 mg DAILY PO 05/08/18 09:00 05/13/18 11:02 Pharmacy Profile Note 0 ml @ 0 mls/hr UNSCH OTHER 05/10/18 13:00 (Geodon Inj) 10 mg Q12H PRN IM 05/10/18 13:15 05/10/18 15:24 Vancomycin HCl 1000 mg/Sodium Chloride 250 ml @ 250 mls/hr Q12H IV 05/11/18 16:00 05/13/18 04:19 ([facility] Ordered Lab Info) SPECIFIC LAB TO BE DRAWN:VANCOMYCIN TROUGH DATE TO... ONCE ONCE .XX 05/14/18 03:45 05/14/18 03:46 Vital Signs / I&O Vital Signs Date Time Temp Pulse Resp B/P (MAP) Pulse Ox O2 Delivery O2 Flow Rate FiO2 05/13/18 12:10 98.0 69 17 99/65 (76) 100 05/13/18 08:10 97.9 68 17 128/87 (101) 100 05/13/18 04:00 70 05/13/18 00:00 99.0 65 17 132/72 (92) 99 05/12/18 21:00 Room Air 05/12/18 20:00 97.8 61 19 111/77 (88) 98 05/12/18 20:00 63 05/12/18 16:00 98.0 64 18 123/79 (94) 100 I/O 05/12/18 05/12/18 05/12/18 05/13/18 05/13/18 05/13/18 07:00 15:00 23:00 07:00 15:00 23:00 Intake Total 250 ml 480 ml Output Total 350 ml 200 ml Balance 250 ml 480 ml -350 ml -200 ml Intake Oral 480 ml IV Total 250 ml Output Urine Total 350 ml 200 ml # Voids 3 # Bowel Movements 2 2 Physical Exam GENERAL: In NAD. SKIN: Warm and dry. HEAD: Normocephalic. EYES: No scleral icterus. No injection or drainage. NECK: Supple, trachea midline. No JVD or lymphadenopathy. CARDIOVASCULAR: Regular rate and rhythm without murmurs, gallops, or rubs. RESPIRATORY: Breath sounds equal bilaterally. No accessory muscle use. GASTROINTESTINAL: Abdomen soft, non-tender, nondistended. MUSCULOSKELETAL: No cyanosis, or edema. Skin depigmentation Assessment and Plan Problem List: (1) Altered mental status ICD Codes: R41.82 - Altered mental status, unspecified (2) UTI (urinary tract infection) ICD Codes: N39.0 - Urinary tract infection, site not specified Status: Acute (3) AIDS ICD Codes: B20 - AIDS Status: Acute (4) Elevated troponin ICD Codes: R74.8 - Abnormal levels of other serum enzymes Status: Acute (5) Noncompliance ICD Codes: Z91.19 - Patient's noncompliance with other medical treatment and regimen Assessment and Plan Remains stable from cardiac standpoint. Relatively asymptomatic. No angina or CHF. Continue current program including tx for MRSA bacteremia as per ID. Increase activity. Case management to help with placement, may benefit from hospice evaluation. Problem Qualifiers (1) UTI (urinary tract infection): Qualified Codes: N39.0 - Urinary tract infection, site not specified Miki Becerra MD May 13, 2018 15:54
[2018-05-13 16:10] VITALS: BP 102/66; PULSE 68; RESP 16; TEMP 98.3; O2SAT 100
--- NOTE | 2018-05-13 16:35 | HHI.HCPN ---
Attempting to assist with locating health care surrogate/brother Satnam Vaz. Google search produces possible match, Satnam Vaz age 57 now living in [place]. Requested [employer] be ran with updated information, awaiting results. Unable to locate on social media without further information/ confirmation of identifying information. Attempted to locate sons: Yony and Zi on social media, unable to locate without further information. Palliative care will continue to follow throughout hospitalization. Patti Cordero, MANAGER UTILITY May 13, 2018 16:35
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
[2018-05-13 20:11] VITALS: BP 126/78; PULSE 76; RESP 16; TEMP 97.7; O2SAT 100
[2018-05-14] VITALS (8 sets, daily range): BP systolic 97–134; BP diastolic 60–82; PULSE 58–76; RESP 16–17; TEMP 97.7–98.7; O2SAT 100
[2018-05-14] MEDS ORDERED: PHARMACY ORDERED LAB ONE ×2 (03:45→15:45)
[2018-05-14] MEDS: VANCOMYCIN 1,000 MG/NS 250 ML IV SCH ×6 (03:55→20:46)
--- NOTE | 2018-05-14 07:37 | ECHRPT ---
Indication: CONCLUSIONS The left ventricular systolic function is normal with an estimated ejection fraction in the range of 55-60%. Wall thickness is measured at the upper limits of normal. Moderate thickening of the mitral valve leaflets. Mitral annular calcification is present. Mild mitral valve regurgitation. There is trace tricuspid valve regurgitation. Incomplete exam; pt refused to complete exam partially though study. BP: / HR: Rhythm: MEASUREMENTS (Male / Female) Normal Values Technical Quality: 2D ECHO LV Diastolic Diameter PLAX 4.9 cm 4.2 - 5.9 / 3.9 - 5.3 cm LV Systolic Diameter PLAX 3.5 cm IVS Diastolic Thickness 1.2 cm 0.6 - 1.0 / 0.6 - 0.9 cm LVPW Diastolic Thickness 1.1 cm 0.6 - 1.0 / 0.6 - 0.9 cm LV Relative Wall Thickness 0.5 RV Internal Dim ED PLAX 1.8 cm LVOT Diameter 2.1 cm LA Systolic Diameter LX 3.4 cm 3.0 - 4.0 / 2.7 - 3.8 cm M-MODE Aortic Root Diameter MM 3.4 cm LA Systolic Diameter MM 4.2 cm LA Ao Ratio MM 1.2 AV Cusp Separation MM 2.2 cm DOPPLER TR Peak Velocity 247.0 cm/s TR Peak Gradient 24.4 mmHg Right Atrial Pressure 10.0 mmHg Pulmonary Artery Systolic Pressu 34.4 mmHg Right Ventricular Systolic Press 34.4 mmHg FINDINGS LEFT VENTRICLE The left ventricular systolic function is normal with an estimated ejection fraction in the range of 55-60%. Wall thickness is measured at the upper limits of normal. MITRAL VALVE Moderate thickening of the mitral valve leaflets. Mitral annular calcification is present. Mild mitral valve regurgitation. TRICUSPID VALVE There is trace tricuspid valve regurgitation. Gerald Martin MD Edited by: inside sales administrator inside sales administrator (Electronically Signed) Final Date:12 May 2018 08:24 Amended: 14 May 2018 07:35
[2018-05-14] MEDS: ASPIRIN 325 MG TAB PO SCH (09:15)
[2018-05-14] MEDS: SODIUM CHLORIDE 0.9% FLUSH 10 ML FLUSH IV FLUSH SCH ×2 (09:15→20:46)
--- NOTE | 2018-05-14 12:14 | HHI.HCPN ---
Mr. Vaz has a health care surrogate scanned into EMR. Missing second witness. Indicates at one point Mr. Vaz wished to appoint his brother, Satnam, has health care surrogate. Palliative care attempting to locate him to determine status of his participation as health care surrogate. Number in EMR has been attempted by case management and indicates Satnam was not at this number. In review of notes Mr. Vaz has two children, no identifying information other than last names. Attempted to locate sons: Yony and Zi on social media, unable to locate without further information. Requested accurint results as it appears only number attempted to contact brother is number listed in EMR. Per CM notes, Rylan did not engage in conversation with them. Received the following information: * Satnam Vaz, brother: [phone] (left message requesting call back); [phone] (not a working number) [phone] (attempted again today, wrong number). * Annette Randi (Milind), possible family member: [phone] (number not in service) * Robin Vaz, possible family member, no contact information. * NO information on children or other family members from accurint Unable to further identify/locate family members through google and social media searches. Records indicate a nephew, Rylan [phone] at the same number in EMR for brothniyah Hay. Attempted to contact, man answering the phones states "ya'll don 't want to speak with me when I want to speak with you, I don't need to talk to nobody" and terminated phone call. Currently awaiting call back from possible match to brother Satnam. Will attempt to contact [employer] again later today to discuss other family members for Mr. Vaz or contact information for brother Satnam. If no further information on brother Satnam and other family members, fox [employer]agan may be appropriate to serve as health care proxy decision maker. If Rylan is unwilling, unable, or unavailable, given all measures have been exhausted to locate other family members, social work advantage may be appropriate. 3pm-- attempted to contact Rylan again. No answer and no return call. Palliative care will continue to follow throughout hospitalization. Patti Cordero, INTER COM SERVICER May 14, 2018 12:14
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
--- NOTE | 2018-05-14 16:02 | PD.CARD.PN ---
Subjective Subjective Remarks Denies CP or SOB, has no c/o Objective Medications Current Medications Medications (Trade) Dose Ordered Sig/Deb Route Start Time Stop Time Status Last Admin (NS Flush) 2 ml UNSCH PRN IV FLUSH 05/07/18 16:45 (NS Flush) 2 ml BID IV FLUSH 05/07/18 21:00 05/14/18 09:15 (Narcan Inj) 0.4 mg UNSCH PRN IV PUSH 05/07/18 16:45 (Milk Of Magnesia Liq) 30 ml Q12H PRN PO 05/07/18 16:45 (Senokot) 17.2 mg Q12H PRN PO 05/07/18 16:45 (Dulcolax Supp) 10 mg DAILY PRN RECTAL 05/07/18 16:45 (Lactulose Liq) 30 ml DAILY PRN PO 05/07/18 16:45 (Aspirin) 325 mg DAILY PO 05/08/18 09:00 05/14/18 09:15 Pharmacy Profile Note 0 ml @ 0 mls/hr UNSCH OTHER 05/10/18 13:00 (Geodon Inj) 10 mg Q12H PRN IM 05/10/18 13:15 05/10/18 15:24 Vancomycin HCl 1000 mg/Sodium Chloride 250 ml @ 250 mls/hr Q12H IV 05/11/18 16:00 Future hold 05/14/18 03:55 Vital Signs / I&O Vital Signs Date Time Temp Pulse Resp B/P (MAP) Pulse Ox O2 Delivery O2 Flow Rate FiO2 05/14/18 12:10 98.1 70 17 97/69 (78) 100 05/14/18 08:10 97.8 66 17 134/71 (92) 100 05/14/18 08:00 58 05/14/18 08:00 Room Air 05/14/18 04:10 97.7 69 16 119/82 (94) 100 05/14/18 04:00 Room Air 05/14/18 00:00 76 05/14/18 00:00 Room Air 05/14/18 00:00 98.6 72 16 126/75 (92) 100 05/13/18 20:11 97.7 76 16 126/78 (94) 100 05/13/18 20:00 Room Air 05/13/18 16:10 98.3 68 16 102/66 (78) 100 I/O 05/13/18 05/13/18 05/13/18 05/14/18 05/14/18 05/14/18 07:00 15:00 23:00 07:00 15:00 23:00 Intake Total 840 ml 250 ml Output Total 350 ml 200 ml 900 ml Balance -350 ml -200 ml -60 ml 250 ml Intake Oral 840 ml IV Total 250 ml Output Urine Total 350 ml 200 ml 900 ml # Bowel Movements 2 2 Physical Exam GENERAL: In NAD. SKIN: Warm and dry. HEAD: Normocephalic. EYES: No scleral icterus. No injection or drainage. NECK: Supple, trachea midline. No JVD or lymphadenopathy. CARDIOVASCULAR: Regular rate and rhythm without murmurs, gallops, or rubs. RESPIRATORY: Breath sounds equal bilaterally. No accessory muscle use. GASTROINTESTINAL: Abdomen soft, non-tender, nondistended. MUSCULOSKELETAL: No cyanosis, or edema. Skin depigmentation Laboratory Laboratory Tests Test 05/14/18 03:34 Vancomycin Level Trough 22.1 MCG/ML Assessment and Plan Problem List: (1) Altered mental status ICD Codes: R41.82 - Altered mental status, unspecified (2) UTI (urinary tract infection) ICD Codes: N39.0 - Urinary tract infection, site not specified Status: Acute (3) AIDS ICD Codes: B20 - AIDS Status: Acute (4) Elevated troponin ICD Codes: R74.8 - Abnormal levels of other serum enzymes Status: Acute (5) Noncompliance ICD Codes: Z91.19 - Patient's noncompliance with other medical treatment and regimen Assessment and Plan No new cardiac issues. Has no complaints. No angina or CHF. Continue current program including tx for MRSA bacteremia as per ID. Increase activity. May benefit from hospice evaluation. Problem Qualifiers (1) UTI (urinary tract infection): Qualified Codes: N39.0 - Urinary tract infection, site not specified Miki Becerra MD May 14, 2018 16:02
[2018-05-14 18:01] LABS: HEMATOCRIT 27.9 % (39.0-51.0); MEAN CELL VOLUME 97.6 FL (80.0-100.0); MEAN CORPUSCULAR HEMOGLOBIN 34.8 PG (27.0-34.0); MEAN CORPUSCULAR HGB CONC 35.7 % (32.0-36.0); MEAN PLATELET VOLUME 9.4 FL (7.0-11.0); PLATELET COUNT 127 TH/MM3 (150-450); RED BLOOD COUNT 2.86 MIL/MM3 (4.50-5.90); RED CELL DISTRIBUTION WIDTH 15.5 % (11.6-17.2); WHITE BLOOD COUNT 3.5 TH/MM3 (4.0-11.0)
[2018-05-14 18:25] LABS: BICARBONATE 24.3 MEQ/L (21.0-32.0); CALCIUM 7.9 MG/DL (8.5-10.1); CREATININE 0.71 MG/DL (0.60-1.30)
[2018-05-14 18:57] LABS: BANDS 8 % (0-6); LYMPHOCYTES 19 % (9-44); METAMYELOCYTES 3 % (0-1); MONOCYTES 6 % (0-8); NEUTROPHIL # MANUAL DIFF 2.6 TH/MM3 (1.8-7.7); OVALOCYTES 1+ (NORMAL); POLYS (SEG NEUTROPHILS) 62 % (16-70)
[2018-05-14] MEDS ORDERED: LORazepam 2 MG/ML VIAL IM ONE (19:15)
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
[2018-05-15] VITALS (12 sets, daily range): BP systolic 111–134; BP diastolic 69–91; PULSE 65–93; RESP 17–20; TEMP 97.3–98.6; O2SAT 98–99
[2018-05-15] MEDS ORDERED: PHARMACY ORDERED LAB ONE (07:45)
[2018-05-15] MEDS: ASPIRIN 325 MG TAB PO SCH (08:40)
[2018-05-15] MEDS: SODIUM CHLORIDE 0.9% FLUSH 10 ML FLUSH IV FLUSH SCH ×2 (08:40→20:06)
[2018-05-15] MEDS: VANCOMYCIN 1,000 MG/NS 250 ML IV SCH ×2 (08:42)
--- NOTE | 2018-05-15 10:34 | HHI.HCPN ---
Palliative care continues to search for family. No return calls from any messages left yesterday with accurint results and fox Fagan. Per [place] Statutes medical proxy decision maker(s) are to be readily available. At this time it would be appropriate to consult social work advantage to serve as health care proxy to address CODE STATUS and goals of medical treatment ( aggressive vs hospice and do not rehospitalize). Social work advantage is unable to follow Mr. Vaz outside of the hospital so placement would continue to be an issue. Social work advantage consult placed. Spoke with [facility] case planner Bc Haji". He states DCF is able to assist with getting Mr. Vaz signed up for placement when he is ready for discharge although it is a process that requires court involvement so "it could take a little bit of time". Confirms he has not been able to find or have contact with family. Andrew is requesting contact from medical provider to coordinate assistance with placement and readiness of discharge. Should hospice be elected, discharge could sooner as hospice can manage end of life care. Per my note 05/14, [facility] results were as follows: "Received the following information: * Satnam Vaz, brother: [phone] (left message requesting call back); (not a working number) [phone] (attempted again today, wrong number). * Annette Randi (Milind), possible family member: [phone] (number not in service) * Robin Vaz, possible family member, no contact information. * NO information on children or other family members from [facility] Unable to further identify/locate family members through google and social media searches. Records indicate a nephewRylan [phone] at the same number in EMR for brother Satnam. Attempted to contact, man answering the phones states "ya'll don 't want to speak with me when I want to speak with you, I don't need to talk to nobody" and terminated phone call. No further return calls." Spoke with case management and provided all of the above information. Palliative care will continue to follow throughout hospitalization. Patti Cordero, [employer] SCI[employer] TE[employer]ER May 15, 2018 10:34
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
--- NOTE | 2018-05-15 15:28 | PD.PSY.CON ---
Provisional Diagnosis Admission Date May 07, 2018 at 16:49 [place] I. Delirium due to underlying medical condition [place] II. Deferred History of Present Illness Service Psychiatry Consult Requested By Medicine Reason for Consult Agitation Primary Care Physician Unknown HPI The patient is a 57-year-old -[place]anish man, domiciled in [facility], single , employed, he denies previous psychiatric history, denies previous psychiatric hospitalizations, suicide attempts, with a medical history significant for HIV with AIDS, hepatitis C and tuberculosis. He presented to the ER for altered mental status. Altered mental status and encephalopathy is likely related to AIDS dementia. The patient has being episodically agitated and combative in the medical floor. On my psychiatric evaluation however, the patient is calm, superficially cooperative and distant. The patient is quite apathetic, poorly communicative, but he is oriented 3. Able to tell me the reason of his hospitalization. He says that he is in a good mood. He denies depressive symptoms, he denies suicidal enemas ideation, he denies visual and auditory hallucinations. He denies pain, distress, denies difficulty sleeping at night. No agitation, no aggressive behavior present at the moment. Review of Systems Constitutional: DENIES: Diaphoretic episodes, Fatigue, Fever, Weight gain, Weight loss, Chills, Dizziness, Change in appetite, Night Sweats Endocrine: DENIES: Heat/cold intolerance, Polydipsia, Polyuria, Polyphagia Eyes: DENIES: Blurred vision, Diplopia, Eye inflammation, Eye pain, Vision loss , Photosensitivity, Double Vision Ears, nose, mouth, throat: DENIES: Tinnitus, Hearing loss, Vertigo, Nasal discharge, Oral lesions, Throat pain, Hoarseness, Ear Pain, Running Nose, Epistaxis, Sinus Pain, Toothache, Odynophagia Respiratory: DENIES: Apneas, Cough, Snoring, Wheezing, Hemoptysis, Sputum production, Shortness of breath Cardiovascular: DENIES: Chest pain, Palpitations, Syncope, Dyspnea on Exertion , PND, Lower Extremity Edema, Orthopnea, Claudication Gastrointestinal: DENIES: Abdominal pain, Black stools, Bloody stools, Constipation, Diarrhea, Nausea, Vomiting, Difficulty Swallowing, Anorexia Genitourinary: DENIES: Sexual dysfunction, Urinary frequency, Urinary incontinence, Urgency, Hematuria, Dysuria, Nocturia, Penile Discharge, Testicular Pain, Testicular Swelling Musculoskeletal: DENIES: Joint pain, Muscle aches, Stiffness, Joint Swelling, Back pain, Neck pain Integumentary: DENIES: Abnormal pigmentation, Nail changes, Pruritus, Rash Hematologic/lymphatic: DENIES: Bruising, Lymphadenopathy Immunologic/allergic: DENIES: Eczema, Urticaria Neurologic: DENIES: Abnormal gait, Headache, Localized weakness, Paresthesias, Seizures, Speech Problems, Tremor, Poor Balance Psychiatric: COMPLAINS OF: Confusion, DENIES: Anxiety, Mood changes, Depression , Hallucinations, Agitation, Suicidal Ideation, Homicidal Ideation, Delusions Past Family Social History Coded Allergies: No Known Allergies (Verified Allergy, Unknown, 05/11/18) MRI PRECAUTION (Verified Adverse Reaction, Severe, 05/11/18) BULLETS IN SPINAL CANAL, DML 05/11/18, VERIFIED, DR. KIM No Active Prescriptions or Reported Meds Current Medications Medications (Trade) Dose Ordered Sig/Deb Route Start Time Stop Time Status Last Admin (NS Flush) 2 ml UNSCH PRN IV FLUSH 05/07/18 16:45 (NS Flush) 2 ml BID IV FLUSH 05/07/18 21:00 05/15/18 08:40 (Narcan Inj) 0.4 mg UNSCH PRN IV PUSH 05/07/18 16:45 (Milk Of Magnesia Liq) 30 ml Q12H PRN PO 05/07/18 16:45 (Senokot) 17.2 mg Q12H PRN PO 05/07/18 16:45 (Dulcolax Supp) 10 mg DAILY PRN RECTAL 05/07/18 16:45 (Lactulose Liq) 30 ml DAILY PRN PO 05/07/18 16:45 (Aspirin) 325 mg DAILY PO 05/08/18 09:00 05/15/18 08:40 Pharmacy Profile Note 0 ml @ 0 mls/hr UNSCH OTHER 05/10/18 13:00 05/22/18 12:59 (Geodon Inj) 10 mg Q12H PRN IM 05/10/18 13:15 05/10/18 15:24 Vancomycin HCl 1000 mg/Sodium Chloride 250 ml @ 250 mls/hr Q12H IV 05/16/18 06:00 ([facility] Ordered Lab Info) SPECIFIC LAB TO BE DRAWN:VANCOMYCIN TROUGH DATE TO... ONCE ONCE .XX 05/18/18 05:45 05/18/18 05:46 Family Psych History No family psychiatric history Social History Patient was born and raised in [facility], he is single, unemployed, Physical Exam Vital Signs Vital Signs Date Time Temp Pulse Resp B/P (MAP) Pulse Ox O2 Delivery O2 Flow Rate FiO2 05/15/18 12:30 97.8 80 20 131/69 (89) 98 05/15/18 08:00 Room Air Lab Results Test 05/14/18 17:53 05/15/18 07:40 White Blood Count 3.5 TH/MM3 Red Blood Count 2.86 MIL/MM3 Hemoglobin 10.0 GM/DL Hematocrit 27.9 % Mean Corpuscular Volume 97.6 FL Mean Corpuscular Hemoglobin 34.8 PG Mean Corpuscular Hemoglobin Concent 35.7 % Red Cell Distribution Width 15.5 % Platelet Count 127 TH/MM3 Mean Platelet Volume 9.4 FL CBC Comment AUTO DIFF Differential Total Cells Counted 100 Neutrophils % (Manual) 62 % Band Neutrophils % 8 % Lymphocytes % 19 % Monocytes % 6 % Eosinophils % 2 % Neutrophils # (Manual) 2.6 TH/MM3 Metamyelocytes 3 % Differential Comment FINAL DIFF MANUAL Platelet Estimate LOW Platelet Morphology Comment ENLARGED Ovalocytes 1+ Blood Urea Nitrogen 7 MG/DL Creatinine 0.71 MG/DL Random Glucose 78 MG/DL Calcium Level 7.9 MG/DL Sodium Level 145 MEQ/L Potassium Level 3.3 MEQ/L Chloride Level 113 MEQ/L Carbon Dioxide Level 24.3 MEQ/L Anion Gap 8 MEQ/L Estimat Glomerular Filtration Rate 138 ML/MIN Vancomycin Level Trough 16.2 MCG/ML 24.4 MCG/ML Date/Time Source Procedure Growth Status 05/11/18 09:02 Blood Peripheral Aerobic Blood Culture - Preliminary NO GROWTH IN 4 DAYS Resulted 05/11/18 09:02 Blood Peripheral Anaerobic Blood Culture - Preliminary NO GROWTH IN 4 DAYS Resulted 05/07/18 15:19 Urine Catheterized Urine Urine Culture - Final Enterococcus Faecalis Complete Mental Status Examination Appearance: Disheveled Consciousness: Lethargic Orientation: x4 Motor Activity: Normal gait Speech: Unremarkable Language: Adequate Fund of Knowledge: Adequate Attention and Concentration: Adequate Memory: Unremarkable Mood: Oppositional Affect: Irritable Thought Process & Associations: Intact Thought Content: Appropriate Hallucination Type: None Delusion Type: None Suicidal Ideation: No Suicidal Plan: No Suicidal Intention: No Homicidal Ideation: No Homicidal Plan: No Homicidal Intention: No Insight: Adequate Judgment: Adequate Assessment & Plan Problem List: (1) Delirium due to another medical condition ICD Codes: F05 - Delirium due to known physiological condition Assessment & Plan: Patient is poorly cooperative, apathetic, seems to be distant, but oriented 3. Denies depression, denies anxiety, denies psychosis. He denies suicidal enemas ideation, he denies visual and auditory hallucinations. As per conversation with nurse, the patient has being episodically agitated, difficult to handle. Current presentation is poorly secondary to delirium related with AIDS. For breakthrough agitation the patient can be medicated with Haldol 5 mg IM every 8 hours as needed agitation and aggressive behavior. I will start Haldol 0.5 mg twice daily for behavioral dysregulation. No admission indicated. (2) HIV (human immunodeficiency virus infection) ICD Codes: Z21 - HIV (human immunodeficiency virus infection) Status: Acute Assessment & Plan Estimated LOS: days Alan Westfall MD May 15, 2018 15:28
--- NOTE | 2018-05-15 16:21 | PD.CARD.PN ---
Subjective Subjective Remarks Feels cold, o/w no c/o Objective Medications Current Medications Medications (Trade) Dose Ordered Sig/Deb Route Start Time Stop Time Status Last Admin (NS Flush) 2 ml UNSCH PRN IV FLUSH 05/07/18 16:45 (NS Flush) 2 ml BID IV FLUSH 05/07/18 21:00 05/15/18 08:40 (Narcan Inj) 0.4 mg UNSCH PRN IV PUSH 05/07/18 16:45 (Milk Of Magnesia Liq) 30 ml Q12H PRN PO 05/07/18 16:45 (Senokot) 17.2 mg Q12H PRN PO 05/07/18 16:45 (Dulcolax Supp) 10 mg DAILY PRN RECTAL 05/07/18 16:45 (Lactulose Liq) 30 ml DAILY PRN PO 05/07/18 16:45 (Aspirin) 325 mg DAILY PO 05/08/18 09:00 05/15/18 08:40 Pharmacy Profile Note 0 ml @ 0 mls/hr UNSCH OTHER 05/10/18 13:00 05/22/18 12:59 (Geodon Inj) 10 mg Q12H PRN IM 05/10/18 13:15 05/10/18 15:24 Vancomycin HCl 1000 mg/Sodium Chloride 250 ml @ 250 mls/hr Q12H IV 05/16/18 06:00 ([facility] Ordered Lab Info) SPECIFIC LAB TO BE DRAWN:VANCOMYCIN TROUGH DATE TO... ONCE ONCE .XX 05/18/18 05:45 05/18/18 05:46 (Haldol) 0.5 mg BID PO 05/15/18 21:00 Vital Signs / I&O Vital Signs Date Time Temp Pulse Resp B/P (MAP) Pulse Ox O2 Delivery O2 Flow Rate FiO2 05/15/18 12:30 97.8 80 20 131/69 (89) 98 05/15/18 08:45 98.2 73 20 124/75 (91) 99 05/15/18 08:00 Room Air 05/15/18 04:11 97.3 65 17 134/83 (100) 98 05/15/18 04:00 77 05/15/18 04:00 Room Air 05/15/18 00:10 98.6 79 17 111/79 (90) 98 05/15/18 00:00 Room Air 05/15/18 00:00 72 I/O 05/14/18 05/14/18 05/14/18 05/15/18 05/15/18 05/15/18 07:00 15:00 23:00 07:00 15:00 23:00 Intake Total 250 ml 290 ml 250 ml Output Total 200 ml Balance 250 ml 90 ml 250 ml Intake Oral 240 ml IV Total 250 ml 50 ml 250 ml Output Urine Total 200 ml # Voids 1 Physical Exam GENERAL: In NAD. SKIN: Warm and dry. HEAD: Normocephalic. EYES: No scleral icterus. No injection or drainage. NECK: Supple, trachea midline. No JVD or lymphadenopathy. CARDIOVASCULAR: Regular rate and rhythm without murmurs, gallops, or rubs. RESPIRATORY: Breath sounds equal bilaterally. No accessory muscle use. GASTROINTESTINAL: Abdomen soft, non-tender, nondistended. MUSCULOSKELETAL: No cyanosis, or edema. Skin depigmentation Laboratory Laboratory Tests Test 05/14/18 17:53 05/15/18 07:40 White Blood Count 3.5 TH/MM3 Red Blood Count 2.86 MIL/MM3 Hemoglobin 10.0 GM/DL Hematocrit 27.9 % Mean Corpuscular Volume 97.6 FL Mean Corpuscular Hemoglobin 34.8 PG Mean Corpuscular Hemoglobin Concent 35.7 % Red Cell Distribution Width 15.5 % Platelet Count 127 TH/MM3 Mean Platelet Volume 9.4 FL CBC Comment AUTO DIFF Differential Total Cells Counted 100 Neutrophils % (Manual) 62 % Band Neutrophils % 8 % Lymphocytes % 19 % Monocytes % 6 % Eosinophils % 2 % Neutrophils # (Manual) 2.6 TH/MM3 Metamyelocytes 3 % Differential Comment FINAL DIFF MANUAL Platelet Estimate LOW Platelet Morphology Comment ENLARGED Ovalocytes 1+ Blood Urea Nitrogen 7 MG/DL Creatinine 0.71 MG/DL Random Glucose 78 MG/DL Calcium Level 7.9 MG/DL Sodium Level 145 MEQ/L Potassium Level 3.3 MEQ/L Chloride Level 113 MEQ/L Carbon Dioxide Level 24.3 MEQ/L Anion Gap 8 MEQ/L Estimat Glomerular Filtration Rate 138 ML/MIN Vancomycin Level Trough 16.2 MCG/ML 24.4 MCG/ML Assessment and Plan Problem List: (1) Altered mental status ICD Codes: R41.82 - Altered mental status, unspecified (2) UTI (urinary tract infection) ICD Codes: N39.0 - Urinary tract infection, site not specified Status: Acute (3) AIDS ICD Codes: B20 - AIDS Status: Acute (4) Elevated troponin ICD Codes: R74.8 - Abnormal levels of other serum enzymes Status: Acute (5) Noncompliance ICD Codes: Z91.19 - Patient's noncompliance with other medical treatment and regimen Assessment and Plan No cardiac complaints. No angina or CHF. Continue current program including tx for MRSA bacteremia as per ID. Increase activity, stays in bed most of the time. Seen by palliative care, recommend hospice evaluation. Problem Qualifiers (1) UTI (urinary tract infection): Qualified Codes: N39.0 - Urinary tract infection, site not specified Miki Becerra MD May 15, 2018 16:21
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
[2018-05-15] MEDS: HALOPERIDOL 0.5 MG TAB PO SCH (20:06)
[2018-05-16] VITALS (11 sets, daily range): BP systolic 106–123; BP diastolic 59–87; PULSE 61–91; RESP 18; TEMP 97.5–100.4; O2SAT 98–100
[2018-05-16 01:29] LABS: HEMOGLOBIN 9.3 GM/DL (13.0-17.0); MEAN CORPUSCULAR HEMOGLOBIN 33.6 PG (27.0-34.0); MEAN CORPUSCULAR HGB CONC 34.6 % (32.0-36.0); MEAN PLATELET VOLUME 8.8 FL (7.0-11.0); PLATELET COUNT 134 TH/MM3 (150-450); RED BLOOD COUNT 2.78 MIL/MM3 (4.50-5.90); RED CELL DISTRIBUTION WIDTH 15.7 % (11.6-17.2); WHITE BLOOD COUNT 3.9 TH/MM3 (4.0-11.0)
[2018-05-16 01:58] LABS: ALBUMIN 1.9 GM/DL (3.4-5.0); ALT (GPT) 44 U/L (12-78); AST (GOT) 73 U/L (15-37); BICARBONATE 25.1 MEQ/L (21.0-32.0); BLOOD UREA NITROGEN 7 MG/DL (7-18); CALCIUM 7.8 MG/DL (8.5-10.1); CHLORIDE 112 MEQ/L (98-107); CREATININE 0.62 MG/DL (0.60-1.30); GLOMERULAR FILTRATION RATE 161 ML/MIN (>89); GLUCOSE,RANDOM 77 MG/DL (74-106); MAGNESIUM 1.9 MG/DL (1.5-2.5); SODIUM (NA) 143 MEQ/L (136-145)
[2018-05-16 02:00] LABS: ALKALINE PHOSPHATASE 135 U/L (45-117); TOTAL BILIRUBIN ADULT 0.6 MG/DL (0.2-1.0)
[2018-05-16] MEDS ORDERED: POTASSIUM CHLORIDE 25 MEQ EFFERVESCENT TAB PO ONE (02:15)
[2018-05-16 02:51] LABS: BANDS 5 % (0-6); LYMPHOCYTES 7 % (9-44); METAMYELOCYTES 2 % (0-1); MONOCYTES 8 % (0-8); MYELOCYTES 1 % (0-0); NEUTROPHIL # MANUAL DIFF 3.2 TH/MM3 (1.8-7.7); POLYS (SEG NEUTROPHILS) 75 % (16-70)
[2018-05-16 02:53] LABS: ACANTHOCYTES OCC (NORMAL); OVALOCYTES 1+ (NORMAL)
[2018-05-16 02:55] LABS: TOXIC VACUOLATION PRESENT (NONE SEEN)
[2018-05-16] MEDS: VANCOMYCIN 1,000 MG/NS 250 ML IV SCH ×4 (05:14→17:14)
[2018-05-16] MEDS: ASPIRIN 325 MG TAB PO SCH (08:38)
[2018-05-16] MEDS: HALOPERIDOL 0.5 MG TAB PO SCH ×2 (08:38→20:38)
[2018-05-16] MEDS: SODIUM CHLORIDE 0.9% FLUSH 10 ML FLUSH IV FLUSH SCH ×2 (08:38→20:38)
[2018-05-16 10:03] LABS: RPR SCREEN FOR REFLEX NON-REACTIVE (NON-REACTVE)
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
--- NOTE | 2018-05-16 13:03 | HHI.HCPN ---
Spoke with social work case manager for update on approval for [facility]. Referral submitted, pending visit from [facility] appointed to Mr. Vaz' case. Spoke with DCF to update on pending visit from [facility] to determine code status and goals of medical treatment. Requested assistance from DCF on placement upon determination of goals of medical treatment and patient's readiness for discharge. Pallaitive care number provided to RN to telephone palliative care when [facility] sales representative facility services arrives. Palliative care will continue to follow throughout hospitalization. Patti Cordero, ORDER DEPARTMENT SUPERVISOR May 16, 2018 13:03
--- NOTE | 2018-05-16 14:12 | PD.CARD.PN ---
Subjective Subjective Remarks Confused, but comfortable, no CP or SOB Objective Medications Current Medications Medications (Trade) Dose Ordered Sig/Deb Route Start Time Stop Time Status Last Admin (NS Flush) 2 ml UNSCH PRN IV FLUSH 05/07/18 16:45 (NS Flush) 2 ml BID IV FLUSH 05/07/18 21:00 05/16/18 08:38 (Narcan Inj) 0.4 mg UNSCH PRN IV PUSH 05/07/18 16:45 (Milk Of Magnesia Liq) 30 ml Q12H PRN PO 05/07/18 16:45 (Senokot) 17.2 mg Q12H PRN PO 05/07/18 16:45 (Dulcolax Supp) 10 mg DAILY PRN RECTAL 05/07/18 16:45 (Lactulose Liq) 30 ml DAILY PRN PO 05/07/18 16:45 (Aspirin) 325 mg DAILY PO 05/08/18 09:00 05/16/18 08:38 Pharmacy Profile Note 0 ml @ 0 mls/hr UNSCH OTHER 05/10/18 13:00 05/22/18 12:59 (Geodon Inj) 10 mg Q12H PRN IM 05/10/18 13:15 05/10/18 15:24 Vancomycin HCl 1000 mg/Sodium Chloride 250 ml @ 250 mls/hr Q12H IV 05/16/18 06:00 05/16/18 05:14 ([facility] Ordered Lab Info) SPECIFIC LAB TO BE DRAWN:VANCOMYCIN TROUGH DATE TO... ONCE ONCE .XX 05/18/18 05:45 05/18/18 05:46 (Haldol) 0.5 mg BID PO 05/15/18 21:00 05/16/18 08:38 Vital Signs / I&O Vital Signs Date Time Temp Pulse Resp B/P (MAP) Pulse Ox O2 Delivery O2 Flow Rate FiO2 05/16/18 12:00 69 05/16/18 08:35 98.1 61 18 120/87 (98) 100 05/16/18 08:00 65 05/16/18 08:00 Room Air 05/16/18 04:14 97.8 72 18 106/67 (80) 100 05/16/18 04:00 81 05/16/18 03:49 Room Air 05/16/18 00:00 99.5 78 18 122/70 (87) 100 05/16/18 00:00 70 05/15/18 20:18 98.2 93 18 116/91 (99) 99 05/15/18 20:00 81 05/15/18 20:00 Room Air 05/15/18 19:32 91 05/15/18 16:30 98.3 84 20 122/73 (89) 98 05/15/18 16:00 65 I/O 05/15/18 05/15/18 05/15/18 05/16/18 05/16/18 05/16/18 07:00 15:00 23:00 07:00 15:00 23:00 Intake Total 250 ml 250 ml 360 ml 480 ml Output Total 100 ml Balance 250 ml 250 ml 360 ml 380 ml Intake Oral 360 ml 480 ml IV Total 250 ml 250 ml Output Urine Total 100 ml # Voids 1 4 3 # Bowel Movements 0 Physical Exam GENERAL: In NAD. SKIN: Warm and dry. HEAD: Normocephalic. EYES: No scleral icterus. No injection or drainage. NECK: Supple, trachea midline. No JVD or lymphadenopathy. CARDIOVASCULAR: Regular rate and rhythm without murmurs, gallops, or rubs. RESPIRATORY: Breath sounds equal bilaterally. No accessory muscle use. GASTROINTESTINAL: Abdomen soft, non-tender, nondistended. MUSCULOSKELETAL: No cyanosis, or edema. Skin depigmentation Laboratory Laboratory Tests Test 05/16/18 01:03 White Blood Count 3.9 TH/MM3 Red Blood Count 2.78 MIL/MM3 Hemoglobin 9.3 GM/DL Hematocrit 27.0 % Mean Corpuscular Volume 97.0 FL Mean Corpuscular Hemoglobin 33.6 PG Mean Corpuscular Hemoglobin Concent 34.6 % Red Cell Distribution Width 15.7 % Platelet Count 134 TH/MM3 Mean Platelet Volume 8.8 FL CBC Comment AUTO DIFF Differential Total Cells Counted 100 Neutrophils % (Manual) 75 % Band Neutrophils % 5 % Lymphocytes % 7 % Monocytes % 8 % Eosinophils % 2 % Neutrophils # (Manual) 3.2 TH/MM3 Metamyelocytes 2 % Myelocytes 1 % Differential Comment FINAL DIFF MANUAL Toxic Vacuolation PRESENT Platelet Estimate LOW Platelet Morphology Comment NORMAL Ovalocytes 1+ Acanthocytes OCC Blood Urea Nitrogen 7 MG/DL Creatinine 0.62 MG/DL Random Glucose 77 MG/DL Total Protein 7.0 GM/DL Albumin 1.9 GM/DL Calcium Level 7.8 MG/DL Magnesium Level 1.9 MG/DL Alkaline Phosphatase 135 U/L Aspartate Amino Transf (AST/SGOT) 73 U/L Alanine Aminotransferase (ALT/SGPT) 44 U/L Total Bilirubin 0.6 MG/DL Sodium Level 143 MEQ/L Potassium Level 3.5 MEQ/L Chloride Level 112 MEQ/L Carbon Dioxide Level 25.1 MEQ/L Anion Gap 6 MEQ/L Estimat Glomerular Filtration Rate 161 ML/MIN Rapid Plasma Reagin NON-REACTIVE Hepatitis A IgM Antibody NONREACTIVE Hepatitis B Surface Antigen NONREACTIVE Hepatitis B Core IgM Antibody NONREACTIVE Hepatitis C IgG Antibody REACTIVE Assessment and Plan Problem List: (1) Altered mental status ICD Codes: R41.82 - Altered mental status, unspecified (2) UTI (urinary tract infection) ICD Codes: N39.0 - Urinary tract infection, site not specified Status: Acute (3) AIDS ICD Codes: B20 - AIDS Status: Acute (4) Elevated troponin ICD Codes: R74.8 - Abnormal levels of other serum enzymes Status: Acute (5) Noncompliance ICD Codes: Z91.19 - Patient's noncompliance with other medical treatment and regimen Assessment and Plan No new cardiac issues. Continue current program including management for MRSA bacteremia as per ID. Increase activity. Seen by palliative care. I believe he can benefit from hospice evaluation. Problem Qualifiers (1) UTI (urinary tract infection): Qualified Codes: N39.0 - Urinary tract infection, site not specified Miki Becerra MD May 16, 2018 14:12
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
[2018-05-17 03:35] VITALS: BP 110/74; PULSE 73; RESP 18; TEMP 98.4; O2SAT 100
[2018-05-17] MEDS: VANCOMYCIN 1,000 MG/NS 250 ML IV SCH ×4 (05:45→17:49)
[2018-05-17 08:00] VITALS: PULSE 68
[2018-05-17 08:10] VITALS: BP 151/76; PULSE 73; RESP 19; TEMP 98.5; O2SAT 100
[2018-05-17] MEDS: ASPIRIN 325 MG TAB PO SCH (08:31)
[2018-05-17] MEDS: SODIUM CHLORIDE 0.9% FLUSH 10 ML FLUSH IV FLUSH SCH (08:31)
[2018-05-17] MEDS: HALOPERIDOL 0.5 MG TAB PO SCH (08:31)
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
[2018-05-17 12:00] VITALS: PULSE 73
[2018-05-17 12:10] VITALS: BP 148/74; PULSE 72; RESP 18; TEMP 98.7; O2SAT 100
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
[2018-05-17 16:10] VITALS: BP 148/74; PULSE 72; RESP 18; TEMP 98.7; O2SAT 100
--- NOTE | 2018-05-17 17:03 | PD.CARD.PN ---
Subjective Subjective Remarks No c/o, feels fine, eating well Objective Medications Current Medications Medications (Trade) Dose Ordered Sig/Deb Route Start Time Stop Time Status Last Admin (NS Flush) 2 ml UNSCH PRN IV FLUSH 05/07/18 16:45 (NS Flush) 2 ml BID IV FLUSH 05/07/18 21:00 05/17/18 08:31 (Narcan Inj) 0.4 mg UNSCH PRN IV PUSH 05/07/18 16:45 (Milk Of Magnesia Liq) 30 ml Q12H PRN PO 05/07/18 16:45 (Senokot) 17.2 mg Q12H PRN PO 05/07/18 16:45 (Dulcolax Supp) 10 mg DAILY PRN RECTAL 05/07/18 16:45 (Lactulose Liq) 30 ml DAILY PRN PO 05/07/18 16:45 (Aspirin) 325 mg DAILY PO 05/08/18 09:00 05/17/18 08:31 Pharmacy Profile Note 0 ml @ 0 mls/hr UNSCH OTHER 05/10/18 13:00 05/22/18 12:59 (Geodon Inj) 10 mg Q12H PRN IM 05/10/18 13:15 05/10/18 15:24 Vancomycin HCl 1000 mg/Sodium Chloride 250 ml @ 250 mls/hr Q12H IV 05/16/18 06:00 05/17/18 05:45 ([facility] Ordered Lab Info) SPECIFIC LAB TO BE DRAWN:VANCOMYCIN TROUGH DATE TO... ONCE ONCE .XX 05/18/18 05:45 05/18/18 05:46 (Haldol) 0.5 mg BID PO 05/15/18 21:00 05/17/18 08:31 Vital Signs / I&O Vital Signs Date Time Temp Pulse Resp B/P (MAP) Pulse Ox O2 Delivery O2 Flow Rate FiO2 05/17/18 12:10 98.7 72 18 148/74 (98) 100 05/17/18 12:00 73 05/17/18 08:10 98.5 73 19 151/76 (101) 100 05/17/18 08:00 68 05/17/18 08:00 Room Air 05/17/18 03:35 98.4 73 18 110/74 (86) 100 05/17/18 02:57 Room Air 05/16/18 23:58 98.7 91 18 112/59 (76) 100 05/16/18 19:56 100.4 88 18 123/68 (86) 100 I/O 05/16/18 05/16/18 05/16/18 05/17/18 05/17/18 05/17/18 07:00 15:00 23:00 07:00 15:00 23:00 Intake Total 480 ml 600 ml 960 ml Output Total 100 ml 200 ml 1200 ml Balance 380 ml 400 ml -240 ml Intake Oral 480 ml 600 ml 960 ml Output Urine Total 100 ml 200 ml 1200 ml # Voids 3 3 # Bowel Movements 0 1 0 Physical Exam GENERAL: In NAD. SKIN: Warm and dry. HEAD: Normocephalic. EYES: No scleral icterus. No injection or drainage. NECK: Supple, trachea midline. No JVD or lymphadenopathy. CARDIOVASCULAR: Regular rate and rhythm without murmurs, gallops, or rubs. RESPIRATORY: Breath sounds equal bilaterally. No accessory muscle use. GASTROINTESTINAL: Abdomen soft, non-tender, nondistended. MUSCULOSKELETAL: No cyanosis, or edema. Skin depigmentation Assessment and Plan Problem List: (1) Altered mental status ICD Codes: R41.82 - Altered mental status, unspecified (2) UTI (urinary tract infection) ICD Codes: N39.0 - Urinary tract infection, site not specified Status: Acute (3) AIDS ICD Codes: B20 - AIDS Status: Acute (4) Elevated troponin ICD Codes: R74.8 - Abnormal levels of other serum enzymes Status: Acute (5) Noncompliance ICD Codes: Z91.19 - Patient's noncompliance with other medical treatment and regimen Assessment and Plan Remains stable from cardiac standpoint. Continue current program. Increase activity. Seen by palliative care. Recommend to proceed with hospice evaluation and placement. Problem Qualifiers (1) UTI (urinary tract infection): Qualified Codes: N39.0 - Urinary tract infection, site not specified Miki Becerra MD May 17, 2018 17:03
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
[2018-05-18] MEDS ORDERED: PHARMACY ORDERED LAB ONE (05:45)
== END 2018-05-17 19:33 | disposition hospice, inpatient (51) | DRG 975 ==
LOC: NEPE 12:26 → NEDA 16:49 → N04A 17:45
PROVIDERS: ADMIT Family Medicine; ATTEND Family Medicine
DX: A41.9 Sepsis, unspecified organism (principal); B20 Human immunodeficiency virus [HIV] disease; N39.0 Urinary tract infection, site not specified; G93.40 Encephalopathy, unspecified; R64 Cachexia; I95.9 Hypotension, unspecified; E46 Unspecified protein-calorie malnutrition; E87.0 Hyperosmolality and hypernatremia; E87.1 Hypo-osmolality and hyponatremia; E87.2 Acidosis; D64.9 Anemia, unspecified; R74.8 Abnormal levels of other serum enzymes; E87.6 Hypokalemia; R00.1 Bradycardia, unspecified; Z51.5 Encounter for palliative care; B19.20 Unspecified viral hepatitis C without hepatic coma; M19.90 Unspecified osteoarthritis, unspecified site; F17.200 Nicotine dependence, unspecified, uncomplicated; B95.2 Enterococcus as the cause of diseases classified elsewhere; B95.62 Methicillin resistant Staphylococcus aureus infection as the cause of diseases classified elsewhere; F02.80 Dementia in other diseases classified elsewhere, unspecified severity, without behavioral disturbance, psychotic disturbance, mood disturbance, and anxiety; R07.9 Chest pain, unspecified; Z66 Do not resuscitate; Z53.20 Procedure and treatment not carried out because of patient's decision for unspecified reasons; Z91.19 Patient's noncompliance with other medical treatment and regimen; Z79.899 Other long term (current) drug therapy; Z86.11 Personal history of tuberculosis
CPT/HCPCS: 70450; 71045; 71260; 74177; 76937; 80048; 80053; 80061; 80074; 80202; 81001; 82550; 82552; 83036; 83605; 83735; 84100; 84439; 84443; 84484; 85007; 85027; 85610; 85730; 86140; 86355; 86357; 86359; 86360; 86403; 86592; 87040; 87077; 87086; 87147; 87186; 87205; 93005; 93306; 96361; 96365; J0696; J2060; J2543; J3370; J3480; J3486; J7030; J7050; P9612; Q9963; Q9967